=== PATIENT | male | born 1955 | race Caucasian/White ===

== ENCOUNTER 2016-12-22 02:12 | Emergency (ER) | payer BC, MEDICARE ==
[2016-12-22] MEDS ORDERED: DECADRON 10MG INJ. IM ONE (02:33)
[2016-12-22] MEDS ORDERED: DECADRON 10MG INJ. ONE (02:35)
--- NOTE | 2016-12-22 02:41 | ERPHSYRPT ---
- History of Present Illness Time Seen by Provider: 12/22/16 02:38 Source: patient Exam Limitations: no limitations Patient Subjective Stated Complaint: tripped over a child toy landing on elbows and knees. pain in neck low back and both legs. denies hitting head Triage Nursing Assessment: alert and oriented with c/o falling over a child toy landing on bilateraly elbows and knees. no redness or irritation to either elbowes or knees. + radial and pedal pulses bilaterally.. KAY. denies hitting head. Physician History: 61 y/o male comes to the ER with complaints of bilateral knee and elbow pain. Pt describes the pain as sharp, constant, 8/10 and not relieved by percocet. Pt denies any other injuries. Occurred: just prior to arrival Reason for Fall: slipped, tripped Injuries/Pain Location: no injury Loss of Consciousness: no loss of consciousness Quality: sharpness Severity of Pain-Max: severe Severity of Pain-Current: severe Modifying Factors: Improves With: nothing Allergies/Adverse Reactions: codeine Adverse Reaction (Intermediate, Verified 04/17/14 18:06) Vomiting Home Medications: Aspirin EC 325 mg [Ecotrin 325 MG] 325 mg PO DAILY 09/22/12 [History] Citalopram Hydrobromide [Celexa] 10 mg PO DAILY 09/22/12 [History] Clopidogrel Bisulfate 75 mg [PLAVIX 75 MG Tablet] 75 mg PO DAILY 09/22/12 [History] Nitroglycerin 0.4 mg (Ed) [Nitrostat 0.4 MG (ED)] 0.4 mg PO UD PRN [History] Rosuvastatin Calcium [Crestor] 10 mg PO DAILY 02/28/13 [History] Oxycodone HCl 5 mg Ir [Oxy-IR 5 MG] 10 mg PO BID 03/29/14 [History] Hx Tetanus, Diphtheria Vaccination/Date Given: No Hx Influenza Vaccination/Date Given: Yes Hx Pneumococcal Vaccination/Date Given: Yes (with in 5) Immunizations Up to Date: (unknown) - Review of Systems Constitutional: No Fever, No Chills Eyes: No Symptoms Ears, Nose, & Throat: No Symptoms Respiratory: No Cough, No Dyspnea Cardiac: No Chest Pain, No Edema, No Syncope Abdominal/Gastrointestinal: No Abdominal Pain, No Nausea, No Vomiting, No Diarrhea Genitourinary Symptoms: No Dysuria Musculoskeletal: No Back Pain, No Neck Pain Skin: No Rash Neurological: No Dizziness, No Focal Weakness, No Sensory Changes Psychological: No Symptoms Endocrine: No Symptoms All Other Systems: Reviewed and Negative - Past Medical History Pertinent Past Medical History: Yes Neurological History: Stroke ENT History: Other Cardiac History: Coronary Artery Disease, High Cholesterol, Peripheral Vascular Disease Respiratory History: COPD Endocrine Medical History: No Pertinent History Musculoskeletal History: Degenerative Disk Disease GI Medical History: GERD History: Other Psycho-Social History: Depression Other Medical History: 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 AORTA BYFEMEROL BYPASS - Social History Smoking Status: Current every day smoker How long have you smoked: 35 Exposure to second hand smoke: No Drug Use: none Patient Lives Alone: No - Nursing Vital Signs Nursing Vital Signs: Initial Vital Signs Temperature 97.8 F 12/22/16 02:14 Pulse Rate 86 12/22/16 02:14 Respiratory Rate 18 12/22/16 02:14 Blood Pressure 184/91 12/22/16 02:14 O2 Sat by Pulse Oximetry 97 12/22/16 02:14 Pain Scale Pain Intensity 8 - Yanci Coma Score Best Eye Response (Yanci): (4) open spontaneously Best Verbal Response (Yanci): (5) oriented Best Motor Response (Yanci): (6) obeys commands [place] Total: 15 - Physical Exam General Appearance: no apparent distress, alert Head Injury: no evidence of injury Eye Exam: PERRL/EOMI ENT Exam: airway nml Neck Exam: normal inspection, No tenderness Respiratory/Chest Exam: normal breath sounds, No chest tenderness, No respiratory distress Cardiovascular Exam: normal heart sounds, regular rate/rhythm Gastrointestinal Exam: soft, No tenderness, No distention, No guarding, No ecchymosis Back Exam: normal inspection, No vertebral tenderness Extremity Exam: normal inspection, normal range of motion, pelvis stable, No deformities Neurologic Exam: alert, oriented x 3, cooperative, sensation nml, No motor deficits Skin Exam: normal color, warm, dry SpO2: 97 Oxygen Delivery: Room Air - Course Nursing assessment & vital signs reviewed: Yes Ordered Tests: Medication Summary Discontinued Medications Generic Name Dose Route Start Last Admin Trade Name Juan Francisco PRN Reason Stop Dose Admin Dexamethasone Sodium Phosphate 10 mg 12/22/16 02:33 Decadron 10mg Inj. IM 12/22/16 02:34 STAT ONE - Progress Progress: unchanged Progress Note: 12/22/16 02:39 Pt is requesting a dose of steroids and will receive a dose of decadron 10mg IM X 1 dose. Pt will continue on his pain meds as needed. - Departure Time of Disposition: 02:40 Departure Disposition: Home Clinical Impression: Musculoskeletal arm pain Qualifiers: Laterality: unspecified laterality Qualified Code(s): M79.603 - Pain in arm, unspecified Condition: Stable Critical Care Time: No Referrals: OUSMANE LINK MD [Primary Care Provider] - Instructions: Prevent Falls Additional Instructions: Follow up with your primary care doctor for any additional recommendations for pain management.
[2016-12-22 02:57] VITALS: BP 172/70; PULSE 81; O2SAT 99
== END 2016-12-22 02:57 | disposition home or self-care (01) ==
LOC: ED 02:12 → SUPCPDRO 02:12 → ED 02:57
DX: M79.603 Pain in arm, unspecified (principal); W01.0XXA Fall on same level from slipping, tripping and stumbling without subsequent striking against object, initial encounter; M25.522 Pain in left elbow; M25.521 Pain in right elbow; M25.562 Pain in left knee; M25.561 Pain in right knee; M54.2 Cervicalgia; M54.5 Low back pain; Z79.891 Long term (current) use of opiate analgesic; Z79.899 Other long term (current) drug therapy
CPT/HCPCS: 96372; 99283; J1100

== ENCOUNTER 2019-02-20 20:29 | Emergency (ER) | payer MEDICARE, OTHER ==
--- NOTE | 2019-02-20 22:43 | ERPHSYRPT ---
- History of Present Illness Time Seen by Provider: 02/20/19 22:30 Source: patient Exam Limitations: no limitations Physician History: not feeling well for her 2-3 days. Has a cough, dizziness, chills, body aches, malaise. is also sick with a similar symptoms. Patient has a suprapubic catheter. Timing/Duration: day(s) (3) Severity: moderate Modifying Factors: Improves With: nothing Associated Symptoms: nausea, cough, chills, fever, loss of appetite, malaise, weakness, No abdominal pain, No shortness of breath, No heartburn, No diaphoresis Allergies/Adverse Reactions: codeine Adverse Reaction (Intermediate, Verified 02/20/19 23:09) Vomiting Home Medications: Aspirin EC 325 mg [Ecotrin 325 MG] 325 mg PO DAILY 09/22/12 [History] Clopidogrel Bisulfate 75 mg [PLAVIX 75 MG Tablet] 75 mg PO DAILY 09/22/12 [History] Nitroglycerin 0.4 mg (Ed) [Nitrostat 0.4 MG (ED)] 0.4 mg PO UD PRN [History] Rosuvastatin Calcium [Crestor] 10 mg PO DAILY 02/28/13 [History] Oxycodone HCl/Acetaminophen [Percocet 7.5-325 mg Tablet] 1 each PO TID 06/26/17 [History] Cilostazol 100 mg [Pletal 100 MG] 50 mg PO BID 07/10/17 [History] Docusate Sodium [Stool Softener] 100 mg PO DAILY 07/10/17 [History] Gabapentin 300 mg PO TID 07/10/17 [History] Hx Tetanus, Diphtheria Vaccination/Date Given: No Hx Influenza Vaccination/Date Given: Yes Hx Pneumococcal Vaccination/Date Given: Yes (with in 5) - Review of Systems Constitutional: Fever, Chills Eyes: No Symptoms Ears, Nose, & Throat: No Symptoms, Throat Pain Respiratory: Cough, No Dyspnea Cardiac: No Chest Pain, No Edema, No Syncope Abdominal/Gastrointestinal: Nausea, No Abdominal Pain, No Vomiting, No Diarrhea Genitourinary Symptoms: No Dysuria Musculoskeletal: No Back Pain, No Neck Pain Skin: No Rash Neurological: No Dizziness, No Focal Weakness, No Sensory Changes Psychological: No Symptoms Endocrine: No Symptoms All Other Systems: Reviewed and Negative - Past Medical History Pertinent Past Medical History: Yes Neurological History: Stroke ENT History: Other Cardiac History: Coronary Artery Disease, High Cholesterol, Peripheral Vascular Disease Respiratory History: COPD Endocrine Medical History: No Pertinent History Musculoskeletal History: Degenerative Disk Disease GI Medical History: GERD History: Other Psycho-Social History: Depression Other Medical History: 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 AORTA BYFEMEROL BYPASS - Social History Smoking Status: Current every day smoker How long have you smoked: 35 Exposure to second hand smoke: No Drug Use: none Patient Lives Alone: No - Nursing Vital Signs Nursing Vital Signs: Initial Vital Signs Temperature 99.3 F 02/20/19 22:57 Pulse Rate 82 02/20/19 22:57 Respiratory Rate 18 02/20/19 22:57 Blood Pressure 108/65 02/20/19 22:57 O2 Sat by Pulse Oximetry 95 02/20/19 22:57 Pain Scale Pain Intensity 4 - Physical Exam General Appearance: no apparent distress, alert Eye Exam: PERRL/EOMI, eyes nml inspection Ears, Nose, Throat Exam: pharyngeal erythema Neck Exam: normal inspection, non-tender, supple, full range of motion Respiratory Exam: normal breath sounds, lungs clear, No respiratory distress Cardiovascular Exam: regular rate/rhythm, normal heart sounds, normal peripheral pulses Gastrointestinal/Abdomen Exam: soft, normal bowel sounds, No tenderness, No mass Back Exam: normal inspection, normal range of motion, No CVA tenderness, No vertebral tenderness Extremity Exam: normal inspection, normal range of motion, pelvis stable Neurologic Exam: alert, oriented x 3, cooperative, normal mood/affect, nml cerebellar function, nml station & gait, sensation nml, No motor deficits Skin Exam: normal color, warm, dry, No rash Lymphatic Exam: No adenopathy - Course Nursing assessment & vital signs reviewed: Yes Ordered Tests: Active Orders 24 hr Category Date Time Status CBC W DIFF Stat Lab 02/20/19 23:27 Completed CMP Stat Lab 02/20/19 23:27 Completed CULTURE,URINE Stat Lab 02/20/19 23:27 Received UA W/RFX UR CULTURE Stat Lab 02/20/19 23:27 Completed Medication Summary Discontinued Medications Generic Name Dose Route Start Last Admin Trade Name Juan Francisco PRN Reason Stop Dose Admin Ceftriaxone Sodium 1,000 mg 02/20/19 22:58 02/20/19 23:14 Rocephin 1000 Mg Inj IM 02/20/19 22:59 1,000 mg STAT ONE Administration Ceftriaxone Sodium Confirm 02/20/19 23:12 Rocephin 1000 Mg Inj Administered 02/20/19 23:13 Dose 1,000 mg .ROUTE .STK-MED ONE Lab/Rad Data: Laboratory Result Diagrams 02/20/19 23:27 02/20/19 23:27 Laboratory Results 02/20/19 02/20/19 02/20/19 Range/Units 23:27 23:27 23:27 WBC 8.2 (4.0-10.5) K/mm3 RBC 4.73 (4.1-5.6) M/mm3 Hgb 12.4 L (12.5-18.0) gm/dl Hct 39.9 L (42-50) % MCV 84.4 (78-100) fl MCH 26.2 (26-32) pg MCHC 31.1 L (32-36) g/dl RDW 15.6 H (11.5-14.0) % Plt Count 232 (150-450) K/mm3 MPV 10.7 H (6-9.5) fl Gran % 74.2 H (36.0-66.0) % Eos # (Auto) 0.01 (0-0.5) Absolute Lymphs (auto) 1.39 (1.0-4.6) Absolute Monos (auto) 0.71 (0.0-1.3) Lymphocytes % 16.9 L (24.0-44.0) % Monocytes % 8.6 (0.0-12.0) % Eosinophils % 0.1 (0.00-5.0) % Basophils % 0.2 (0.0-0.4) % Absolute Granulocytes 6.10 (1.4-6.9) Basophils # 0.02 (0-0.4) Sodium 139 (137-145) mmol/L Potassium 3.7 (3.5-5.1) mmol/L Chloride 102 (98-107) mmol/L Carbon Dioxide 27 (22-30) mmol/L Anion Gap 13.1 (5-15) MEQ/L BUN 14 (9-20) mg/dL Creatinine 0.87 (0.66-1.25) mg/dL Estimated GFR > 60.0 ML/MIN Glucose 147 H (74-106) mg/dL Calcium 9.3 (8.4-10.2) mg/dL Total Bilirubin 0.60 (0.2-1.3) mg/dL AST 47 (17-59) U/L ALT 19 (0-50) U/L Alkaline Phosphatase 97 (38-126) U/L Serum Total Protein 8.6 H (6.3-8.2) g/dL Albumin 4.2 (3.5-5.0) g/dL Urine Color YELLOW (YELLOW) Urine Appearance SLIGHTLY CLOUDY (CLEAR) Urine pH 7.0 (5-6) Ur Specific [place] 1.013 (1.005-1.025) Urine Protein 30 (Negative) Urine Ketones TRACE (NEGATIVE) Urine Blood SMALL (0-5) Nate/ul Urine Nitrite NEGATIVE (NEGATIVE) Urine Bilirubin NEGATIVE (NEGATIVE) Urine Urobilinogen NEGATIVE (0-1) mg/dL Ur Leukocyte Esterase SMALL (NEGATIVE) Urine WBC (Auto) 11-15 (0-5) /HPF Urine RBC (Auto) 3-5 (0-2) /HPF U Hyaline Cast (Auto) 0-2 (0-2) /LPF U Epithel Cells (Auto) NONE (FEW) /HPF Urine Bacteria (Auto) FEW (NEGATIVE) /HPF Urine Mucus (Auto) SLIGHT (NEGATIVE) /HPF Urine Culture Reflexed ORDERED SEPARATELY (NO) Urine Glucose NEGATIVE (NEGATIVE) mg/dL - Progress Progress: improved Progress Note: 12/2patient feels better. No life or limb threatening condition. No respiratory distress. Counseled pt/family regarding: lab results, diagnosis, need for follow-up - Departure Departure Disposition: Home Clinical Impression: Influenza A Acute bronchitis Qualifiers: Bronchitis organism: unspecified organism Qualified Code(s): J20.9 - Acute bronchitis, unspecified Upper respiratory infection Qualifiers: URI type: unspecified URI Qualified Code(s): J06.9 - Acute upper respiratory infection, unspecified Condition: Stable Critical Care Time: No Referrals: MARIA DE JESUS LEMOS MD [Primary Care Provider] - 02/22/19 Instructions: Cough, Adult (DC), Flu, Adult (DC), Acute Bronchitis Prescriptions: Azithromycin 250 mg [Zithromax 250 MG TABLET] 250 mg PO ZPACK #6 tablet Oseltamivir 75 mg [Tamiflu 75MG Capsule] 75 mg PO BID 5 Days #10 cap
[2019-02-20] MEDS ORDERED: Rocephin 1000 MG INJ IM ONE (22:58)
[2019-02-20 23:09] VITALS: O2SAT 95
[2019-02-20] MEDS ORDERED: Rocephin 1000 MG INJ ONE (23:12)
[2019-02-20] MEDS ORDERED: XYLOCAINE 1% HCL 20 ML MDV IJ ONE (23:12)
[2019-02-20 23:29] LABS: BASOPHIL % 0.2 % (0.0-0.4); Basophil (Absolute #) 0.02 (0-0.4); Eosinophil % 0.1 % (0.00-5.0); Eosinophil (Absolute #) 0.01 (0-0.5); Hematocrit 39.9 % (42-50); Hemoglobin 12.4 gm/dl (12.5-18.0); Lymphocyte (Absolute #) 1.39 (1.0-4.6); Lymphocytes % 16.9 % (24.0-44.0); Mean Cell Volume 84.4 fl (78-100); Mean Corpuscular Hemoglobin 26.2 pg (26-32); Mean Corpuscular Hgb Concent. 31.1 g/dl (32-36); Mean Platelet Volume 10.7 fl (6-9.5); Monocyte (Absolute #) 0.71 (0.0-1.3); Monocytes % 8.6 % (0.0-12.0); Neutrophil % 74.2 % (36.0-66.0); Platelet Count 232 K/mm3 (150-450); Red Blood Count 4.73 M/mm3 (4.1-5.6); Red Cell Distribution Width 15.6 % (11.5-14.0); White Blood Count 8.2 K/mm3 (4.0-10.5)
[2019-02-20 23:45] LABS: ALBUMIN 4.2 g/dL (3.5-5.0); ALKALINE PHOSPHATASE 97 U/L (38-126); ANION GAP 13.1 MEQ/L (5-15); BLOOD UREA NITROGEN 14 mg/dL (9-20); CHLORIDE 102 mmol/L (98-107); Calcium 9.3 mg/dL (8.4-10.2); Carbon Dioxide 27 mmol/L (22-30); Creatinine 1 0.87 mg/dL (0.66-1.25); Glucose 147 mg/dL (74-106); Potassium 3.7 mmol/L (3.5-5.1); SGOT/AST 47 U/L (17-59); SGPT/ALT 19 U/L (0-50); SODIUM 139 mmol/L (137-145); Total Protein 8.6 g/dL (6.3-8.2)
[2019-02-20 23:52] LABS: Appearance SLIGHTLY CLOUDY (CLEAR); Bacteria FEW /HPF (NEGATIVE); Bilirubin NEGATIVE (NEGATIVE); Blood SMALL Ery/ul (0-5); Glucose NEGATIVE (NEGATIVE); Hyaline Casts 0-2 /LPF (0-2); Ketones TRACE (NEGATIVE); Leukocyte Esterase SMALL (NEGATIVE); Mucus SLIGHT /HPF (NEGATIVE); Nitrite NEGATIVE (NEGATIVE); Protein,Urine Dip 30 (Negative); Specific Gravity 1.013 (1.005-1.025); Urobilinogen NEGATIVE mg/dL (0-1)
[2019-02-21 00:40] VITALS: BP 118/65; PULSE 81
[2019-02-21] MEDS ORDERED: Tamiflu 75MG Capsule PO ONE ×2 (00:46→00:52)
[2019-02-21 00:49] LABS: Group A Strep NEGATIVE (NEGATIVE); INFLUENZA A POSITIVE (NEGATIVE); INFLUENZA B NEGATIVE (NEGATIVE); RESPIRATORY SYNCTIAL VIRUS NEGATIVE (Negative)
== END 2019-02-21 01:09 | disposition home or self-care (01) ==
LOC: ED 20:29 → UNDOADMOB 02-21 01:22 → MED SURG 02-21 01:22
DX: J10.1 Influenza due to other identified influenza virus with other respiratory manifestations (principal); J20.9 Acute bronchitis, unspecified; J06.9 Acute upper respiratory infection, unspecified
CPT/HCPCS: 36415; 80053; 81001; 85025; 87077; 87086; 87186; 87631; 87651; 96372; 99284; J0696; A9270-GY

== ENCOUNTER 2019-09-11 10:08 | Day surgery (SDC) | payer MEDICARE, OTHER ==
[2019-09-11] MEDS ORDERED: Xylocaine 1% Vial 30 ML PF IJ ONE (10:09)
[2019-09-11] MEDS ORDERED: Sensorcaine 0.25% 10 ML IJ ONE (10:09)
[2019-09-11] MEDS ORDERED: Ketamine HCl 50 MG/ML ONE (11:27)
[2019-09-11] MEDS ORDERED: DIPRIVAN 200 MG/20 ML IV ONE (11:27)
--- NOTE | 2019-09-11 12:14 | XRAY ---
Indication: Right lumbar sympathetic nerve block. Intraoperative fluoroscopy was provided for 23 seconds. 2 digital spot images submitted for interpretation demonstrates right posterior needle tip projecting immediately anterior to a mid lumbar segment, probably L3. Small amount of contrast injected for needle tip placement. Correlate with intraoperative findings/report.
--- NOTE | 2019-09-11 13:16 | XRAY ---
23 seconds fluoroscopy time in surgery for right lumbar sympathetic nerve block.
[2019-09-11] MEDS ORDERED: Lactated Ringers 1,000 ML IV ONE (15:49)
== END 2019-09-11 11:56 | disposition home or self-care (01) ==
LOC: SDC-PAIN 10:08
PROVIDERS: ATTEND Psychiatry & Neurology Pain Medicine
DX: G90.521 Complex regional pain syndrome I of right lower limb (principal); I10 Essential (primary) hypertension; J44.9 Chronic obstructive pulmonary disease, unspecified; E11.9 Type 2 diabetes mellitus without complications; Z86.73 Personal history of transient ischemic attack (TIA), and cerebral infarction without residual deficits; Z79.899 Other long term (current) drug therapy
CPT/HCPCS: 64520; 72100; 77002; 82962; J1642; J2001; J2704; Q9966

== ENCOUNTER 2020-11-04 15:20 | Emergency (ER) | payer MEDICARE, OTHER ==
[2020-11-04 17:39] VITALS: BP 123/71; PULSE 69; O2SAT 98
== END 2020-11-04 18:00 | disposition left against medical advice (07) ==
LOC: ED 15:20
DX: Z46.6 Encounter for fitting and adjustment of urinary device (principal)
CPT/HCPCS: 99283; G0463

== ENCOUNTER 2021-01-09 00:55 | Inpatient (IN) | payer MEDICARE, OTHER ==
[2021-01-09] MEDS ORDERED: TORAdol 30 mg Injection IV ONE (01:47)
[2021-01-09] MEDS ORDERED: Zofran 4 MG/2 ML VIAL IV ONE ×2 (01:47→02:52)
[2021-01-09] MEDS ORDERED: Sodium Chloride 0.9% 500 ML 500 ML IV ONE ×2 (01:48→01:52)
[2021-01-09] MEDS ORDERED: Zofran 4 MG/2 ML VIAL ONE ×2 (01:51→02:53)
[2021-01-09] MEDS ORDERED: TORAdol 30 mg Injection ONE (01:51)
[2021-01-09 01:52] LABS: Appearance CLOUDY (CLEAR); Bacteria MODERATE /HPF (NEGATIVE); Bilirubin NEGATIVE (NEGATIVE); Blood LARGE Ery/ul (0-5); Epithelial Cells RARE /HPF (FEW); Glucose NEGATIVE (NEGATIVE); Ketones TRACE (NEGATIVE); Leukocyte Esterase LARGE (NEGATIVE); Mucus MANY /HPF (NEGATIVE); Nitrite POSITIVE (NEGATIVE); Non-Squamous Epithelial Cells RARE /HPF (FEW); Protein,Urine Dip 30 (Negative); Specific Gravity 1.013 (1.005-1.025); Urobilinogen NEGATIVE mg/dL (0-1); WBC >100 /HPF (0-5)
[2021-01-09 01:53] LABS: RBC >101 /HPF (0-2)
[2021-01-09 01:53] LABS: Absolute Neutrophil Ct (ANC) 8.05 (1.4-6.9); BASOPHIL % 0.1 % (0.0-0.4); Basophil (Absolute #) 0.01 (0-0.4); Eosinophil % 1.9 % (0.00-5.0); Eosinophil (Absolute #) 0.23 (0-0.5); Hematocrit 46.2 % (42-50); Hemoglobin 15.1 gm/dl (12.5-18.0); Lymphocyte (Absolute #) 2.33 (1.0-4.6); Lymphocytes % 19.6 % (24.0-44.0); Mean Cell Volume 86.5 fl (78-100); Mean Corpuscular Hemoglobin 28.3 pg (26-32); Mean Corpuscular Hgb Concent. 32.7 g/dl (32-36); Mean Platelet Volume 11.1 fl (7.5-11.0); Monocyte (Absolute #) 1.28 (0.0-1.3); Monocytes % 10.8 % (0.0-12.0); Neutrophil % 67.6 % (36.0-66.0); Platelet Count 196 K/mm3 (150-450); Red Blood Count 5.34 M/mm3 (4.1-5.6); Red Cell Distribution Width 14.3 % (11.5-14.0); White Blood Count 11.9 K/mm3 (4.0-10.5)
--- NOTE | 2021-01-09 02:02 | ERPHSYRPT ---
- History of Present Illness Time Seen by Provider: 01/09/21 01:35 Historian: patient Exam Limitations: no limitations Patient Subjective Stated Complaint: Patient states " my stomach started hurting and it hasn't let up and my sides and back started early in morn ing and I think I might have a kidney infection." Triage Nursing Assessment: Patient arrived to ED and ambulated to room with slow and steady gait. Patient A/O times 4. Patient able to follow instructions without difficulty. Patient denies any SOB or chest pain. Respiratory regular and easy and non-labored. Cap refill < 3 seconds. Symmetrical rise and fall of chest. No S/S of acute respiratory distress noted. ABD round and non-distended. + BS times 4 quads. Patient with tenderness upon palpitation above umbilicus and below. Patient with radiating pain into bilateral flanks and lower back. Patient able to void with cloudy urine with mucous present. Patient denies any pain or burning upon urination. Patient states he has HX of UTI'S. Patient states he takes oral ATB daily as profalactic. Patient with HX of having a supra pubic cath but does not have anymore. Patient stated it fell out. Patient stated it was placed couple of year ago and fell out couple of years ago. Patient sattes it was placed because he was getting infections so badly and all the time. Patient with nausea and he stated he had vomiting on Monday but none siince then. Patient states he had loose stools on Monday as well but hasn't had any since. Patient noted with no dependent edema. + Radial and pedal pulses noted bilateral. Patient denies any trauma or injury to ABD. Patient states he has had a drastic 30# weight loss in short amount of time. Patient states he had MRI done Monday at [facility] to rule out CA. Physician History: 65 years old male with multiple medical problems including hypertension, coronary artery disease status post stenting, peripheral vascular disease, chronic UTIs on Keflex for prophylaxis presented in the ER with chief complaint of bilateral flank and periumbilical area pain for the last 3 days, dull aching mild to moderate with associated nausea vomiting. Denies any constipation or diarrhea. Patient is concerned about getting pyelonephritis as he has similar symptoms in the past with pyelonephritis/sepsis. No fever or chills reported though. Timing/Duration: day(s) (3), constant, gradual onset, worse Activities at Onset: rest Quality: aching, dullness Abdominal Pain Onset Location: periumbilical, suprapubic, flank Pain Radiation: no radiation Severity of Pain-Max: moderate Severity of Pain-Current: moderate Modifying Factors: Improves With: nothing Associated Symptoms: nausea Previous symptoms: same symptoms as today Allergies/Adverse Reactions: codeine Adverse Reaction (Intermediate, Verified 01/09/21 01:09) Vomiting Home Medications: Clopidogrel Bisulfate 75 mg [PLAVIX 75 MG Tablet] 75 mg PO UD 09/22/12 [History] Nitroglycerin 0.4 mg (Ed) [Nitrostat 0.4 MG (ED)] 0.4 mg PO UD PRN 02/28/13 [History] Rosuvastatin Calcium [Crestor] 10 mg PO DAILY 02/28/13 [History] Cephalexin Mh 500 mg [Keflex 500 mg] 500 mg PO DAILY 01/09/21 [History] Hx Tetanus, Diphtheria Vaccination/Date Given: Yes Hx Influenza Vaccination/Date Given: No Hx Pneumococcal Vaccination/Date Given: No Immunizations Up to Date: Yes Travel Risk - International Travel Have you traveled outside of the country in past 3 weeks: No (N) If Yes, where;: N - Coronavirus Screening Close contact with a COVID-19 positive Pt in past 14-21 Days: No - Vaccine Status Have you recieved a Covid-19 vaccination: Yes Ager Tender: Moderna - Vaccination Dates Date of 2cond Vaccination (if applicable): 05/04/20 - Review of Systems Constitutional: No Symptoms Eyes: No Symptoms Ears, Nose, & Throat: No Symptoms Respiratory: No Symptoms Cardiac: No Symptoms Abdominal/Gastrointestinal: Abdominal Pain, Nausea Genitourinary Symptoms: No Symptoms Musculoskeletal: Arthralgias Skin: No Symptoms Neurological: No Symptoms Psychological: No Symptoms Endocrine: No Symptoms Hematologic/Lymphatic: No Symptoms Immunological/Allergic: No Symptoms - Past Medical History Pertinent Past Medical History: Yes Neurological History: Stroke ENT History: Other Cardiac History: Coronary Artery Disease, High Cholesterol, Peripheral Vascular Disease Respiratory History: COPD Endocrine Medical History: No Pertinent History Musculoskeletal History: Degenerative Disk Disease GI Medical History: GERD History: Other Psycho-Social History: Depression Male Reproductive Disorders: No Pertinent History Other Medical History: 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 AORTA BYFEMEROL BYPASS - Social History Smoking Status: Current every day smoker How long have you smoked: 50+ years Exposure to second hand smoke: Yes Drug Use: none Patient Lives Alone: No - Nursing Vital Signs Nursing Vital Signs: Initial Vital Signs Temperature 97.6 F 01/09/21 00:55 Pulse Rate 87 01/09/21 00:55 Respiratory Rate 22 01/09/21 00:55 Blood Pressure 191/92 01/09/21 00:55 O2 Sat by Pulse Oximetry 96 01/09/21 00:55 Pain Scale Pain Intensity 3 - Physical Exam General Appearance: no apparent distress, alert Eye Exam: PERRL/EOMI Ears, Nose, Throat Exam: normal ENT inspection, pharynx normal Neck Exam: normal inspection, supple, full range of motion Respiratory Exam: normal breath sounds, lungs clear Cardiovascular Exam: regular rate/rhythm, normal heart sounds Gastrointestinal/Abdomen Exam: soft, normal bowel sounds, tenderness (Mild generalized), No guarding Back Exam: normal inspection Extremity Exam: normal inspection, normal range of motion Neurologic Exam: alert, oriented x 3, cooperative Skin Exam: normal color SpO2 Interpretation: normal SpO2: 96 O2 Delivery: Room Air Ordered Tests: Active Orders 24 hr Category Date Time Status IV Insertion STAT Care 01/09/21 01:47 Active ABDOMEN AND PELVIS W CONTRAST [CT] Stat Exams 01/09/21 01:47 Taken CHEST 1 VIEW (PORTABLE) Stat Exams 01/09/21 02:33 Taken BLOOD CULTURE Stat Lab 01/09/21 01:22 Received BLOOD CULTURE Stat Lab 01/09/21 02:34 Received CBC W DIFF Stat Lab 01/09/21 01:49 Completed CMP Stat Lab 01/09/21 01:49 Completed CULTURE,URINE Stat Lab 01/09/21 01:38 Received LIPASE Stat Lab 01/09/21 01:49 Completed UA W/RFX UR CULTURE Stat Lab 01/09/21 01:38 Completed Urine Triage Profile Stat Lab 01/09/21 01:43 Completed Medication Summary Generic Name Dose Route Start Last Admin Trade Name Juan Francisco PRN Reason Stop Dose Admin Sodium Chloride 1,000 mls @ 125 mls/hr 01/09/21 03:15 01/09/21 03:58 Sodium Chloride 0.9% 1000 Ml IV 02/08/21 03:14 125 mls/hr .Q8H JOHN Administration Discontinued Medications Generic Name Dose Route Start Last Admin Trade Name Juan Francisco PRN Reason Stop Dose Admin Fentanyl Citrate 50 mcg 01/09/21 04:16 01/09/21 04:29 Fentanyl Citrate 100 Mcg/2 Ml* Vial IV 01/09/21 04:17 50 mcg STAT ONE Administration Fentanyl Citrate Confirm 01/09/21 04:21 Fentanyl Citrate 100 Mcg/2 Ml* Vial Administered 01/09/21 04:22 Dose 100 mcg .ROUTE .STK-MED ONE Sodium Chloride 500 mls @ 500 mls/hr 01/09/21 01:48 01/09/21 05:19 Sodium Chloride 0.9% 500 Ml IV 01/09/21 02:47 Infused .Q1H ONE Infusion Sodium Chloride Confirm 01/09/21 01:52 Sodium Chloride 0.9% 500 Ml Administered 01/09/21 01:53 Dose 500 mls @ ud IV .STK-MED ONE Ceftriaxone Sodium/Dextrose 2 g in 50 mls @ 100 mls/hr 01/09/21 02:04 01/09/21 05:20 Rocephin 2 Gm-D5w 50ml Bag IV 01/09/21 02:33 Infused STAT STA Infusion Ceftriaxone Sodium/Dextrose Confirm 01/09/21 02:05 Rocephin 2 Gm-D5w 50ml Bag Administered 01/09/21 02:06 Dose 2 g in 50 mls @ ud IV .STK-MED ONE Ketorolac Tromethamine 30 mg 01/09/21 01:47 01/09/21 01:58 Ketorolac Tromethamine 30 Mg/Ml Inj IV 01/09/21 01:48 30 mg STAT ONE Administration Ketorolac Tromethamine Confirm 01/09/21 01:51 Ketorolac Tromethamine 30 Mg/Ml Inj Administered 01/09/21 01:52 Dose 30 mg .ROUTE .STK-MED ONE Ondansetron HCl 4 mg 01/09/21 01:47 01/09/21 01:58 Ondansetron Hcl 4 Mg/2 Ml Vial IV 01/09/21 01:48 4 mg STAT ONE Administration Ondansetron HCl Confirm 01/09/21 01:51 Ondansetron Hcl 4 Mg/2 Ml Vial Administered 01/09/21 01:52 Dose 4 mg .ROUTE .STK-MED ONE Ondansetron HCl 4 mg 01/09/21 02:52 01/09/21 02:54 Ondansetron Hcl 4 Mg/2 Ml Vial IV 01/09/21 02:53 4 mg STAT ONE Administration Ondansetron HCl Confirm 01/09/21 02:53 Ondansetron Hcl 4 Mg/2 Ml Vial Administered 01/09/21 02:54 Dose 4 mg .ROUTE .STK-MED ONE Lab/Rad Data: Laboratory Result Diagrams 01/09/21 01:49 01/09/21 01:49 Laboratory Results 01/09/21 01/09/21 01/09/21 Range/Units 01:49 01:49 01:43 WBC 11.9 H (4.0-10.5) K/mm3 RBC 5.34 (4.1-5.6) M/mm3 Hgb 15.1 (12.5-18.0) gm/dl Hct 46.2 (42-50) % MCV 86.5 (78-100) fl MCH 28.3 (26-32) pg MCHC 32.7 (32-36) g/dl RDW 14.3 H (11.5-14.0) % Plt Count 196 (150-450) K/mm3 MPV 11.1 H (7.5-11.0) fl Gran % 67.6 H (36.0-66.0) % Eos # (Auto) 0.23 (0-0.5) Absolute Lymphs (auto) 2.33 (1.0-4.6) Absolute Monos (auto) 1.28 (0.0-1.3) Lymphocytes % 19.6 L (24.0-44.0) % Monocytes % 10.8 (0.0-12.0) % Eosinophils % 1.9 (0.00-5.0) % Basophils % 0.1 (0.0-0.4) % Absolute Granulocytes 8.05 H (1.4-6.9) Basophils # 0.01 (0-0.4) Sodium 136 L (137-145) mmol/L Potassium 4.0 (3.5-5.1) mmol/L Chloride 102 (98-107) mmol/L Carbon Dioxide 25 (22-30) mmol/L Anion Gap 12.5 (5-15) MEQ/L BUN 18 (9-20) mg/dL Creatinine 0.61 L (0.66-1.25) mg/dL Estimated GFR > 60.0 ML/MIN Glucose 146 H (74-106) mg/dL Calcium 9.2 (8.4-10.2) mg/dL Total Bilirubin 0.60 (0.2-1.3) mg/dL AST 22 (17-59) U/L ALT 17 (0-50) U/L Alkaline Phosphatase 132 H (38-126) U/L Serum Total Protein 7.4 (6.3-8.2) g/dL Albumin 4.2 (3.5-5.0) g/dL Lipase 7378 H (23-300) U/L Urine Color (YELLOW) Urine Appearance (CLEAR) Urine pH (5-6) Ur Specific Finley (1.005-1.025) Urine Protein (Negative) Urine Ketones (NEGATIVE) Urine Blood (0-5) Nate/ul Urine Nitrite (NEGATIVE) Urine Bilirubin (NEGATIVE) Urine Urobilinogen (0-1) mg/dL Ur Leukocyte Esterase (NEGATIVE) Urine WBC (Auto) (0-5) /HPF Urine RBC (Auto) (0-2) /HPF U Epithel Cells (Auto) (FEW) /HPF Urine Bacteria (Auto) (NEGATIVE) /HPF U Non-Squamous Epi Cells (FEW) /HPF Urine Mucus (Auto) (NEGATIVE) /HPF Urine Culture Reflexed (NO) Urine Glucose (NEGATIVE) mg/dL Urine Opiates Level NEGATIVE (NEGATIVE) Ur Methadone NEGATIVE (NEGATIVE) Urine Barbiturates NEGATIVE (NEGATIVE) Ur Phencyclidine (PCP) NEGATIVE (NEGATIVE) Urine Amphetamine NEGATIVE (NEGATIVE) U Benzodiazepine Level NEGATIVE (NEGATIVE) Urine Cocaine NEGATIVE (NEGATIVE) Urine Marijuana (THC) NEGATIVE (NEGATIVE) 01/09/21 Range/Units 01:38 WBC (4.0-10.5) K/mm3 RBC (4.1-5.6) M/mm3 Hgb (12.5-18.0) gm/dl Hct (42-50) % MCV (78-100) fl MCH (26-32) pg MCHC (32-36) g/dl RDW (11.5-14.0) % Plt Count (150-450) K/mm3 MPV (7.5-11.0) fl Gran % (36.0-66.0) % Eos # (Auto) (0-0.5) Absolute Lymphs (auto) (1.0-4.6) Absolute Monos (auto) (0.0-1.3) Lymphocytes % (24.0-44.0) % Monocytes % (0.0-12.0) % Eosinophils % (0.00-5.0) % Basophils % (0.0-0.4) % Absolute Granulocytes (1.4-6.9) Basophils # (0-0.4) Sodium (137-145) mmol/L Potassium (3.5-5.1) mmol/L Chloride (98-107) mmol/L Carbon Dioxide (22-30) mmol/L Anion Gap (5-15) MEQ/L BUN (9-20) mg/dL Creatinine (0.66-1.25) mg/dL Estimated GFR ML/MIN Glucose (74-106) mg/dL Calcium (8.4-10.2) mg/dL Total Bilirubin (0.2-1.3) mg/dL AST (17-59) U/L ALT (0-50) U/L Alkaline Phosphatase (38-126) U/L Serum Total Protein (6.3-8.2) g/dL Albumin (3.5-5.0) g/dL Lipase (23-300) U/L Urine Color YELLOW (YELLOW) Urine Appearance CLOUDY (CLEAR) Urine pH 6.0 (5-6) Ur Specific Finley 1.013 (1.005-1.025) Urine Protein 30 (Negative) Urine Ketones TRACE (NEGATIVE) Urine Blood LARGE (0-5) Nate/ul Urine Nitrite POSITIVE (NEGATIVE) Urine Bilirubin NEGATIVE (NEGATIVE) Urine Urobilinogen NEGATIVE (0-1) mg/dL Ur Leukocyte Esterase LARGE (NEGATIVE) Urine WBC (Auto) >100 (0-5) /HPF Urine RBC (Auto) >101 (0-2) /HPF U Epithel Cells (Auto) RARE (FEW) /HPF Urine Bacteria (Auto) MODERATE (NEGATIVE) /HPF U Non-Squamous Epi Cells RARE (FEW) /HPF Urine Mucus (Auto) MANY (NEGATIVE) /HPF Urine Culture Reflexed YES (NO) Urine Glucose NEGATIVE (NEGATIVE) mg/dL Urine Opiates Level (NEGATIVE) Ur Methadone (NEGATIVE) Urine Barbiturates (NEGATIVE) Ur Phencyclidine (PCP) (NEGATIVE) Urine Amphetamine (NEGATIVE) U Benzodiazepine Level (NEGATIVE) Urine Cocaine (NEGATIVE) Urine Marijuana (THC) (NEGATIVE) - Progress Progress: improved, pain not gone completely, re-examined Progress Note: 01/09/21 06:27 65 years old is evaluated in the ER with abdominal pain and nausea. Patient is given IV fluids along with symptomatic treatment for pain and nausea, on reevaluation feeling better. Work-up showed white count of 11, grossly unremarkable chemistries and lipase is in 7000 since. Does have UTI, given a dose of Rocephin. I have obtained CT abdomen pelvis with contrast which showed pancreatic head calcification with some pancreatic duct dilatation but no pancreatic necrosis etc. CT also showed cecum and ascending colon dilatation with gradual transition suggesting ileus. No intestinal obstruction. We will keep patient n.p.o. which will help conservatively managing pancreatitis and a lso ileus. Discussed with Dr. Farfan, reviewed history, work-up and patient is accepted for admission. Discussed with : Norberto Will see patient in: hospital (observation) Counseled pt/family regarding: lab results, diagnosis, rad results - Departure Departure Disposition: Observation Clinical Impression: Acute pancreatitis, Acute UTI, Ileus Condition: Stable Critical Care Time: No Referrals: MARIA DE JESUS LEMOS MD [Primary Care Provider] - Follow up/PCP as directed
[2021-01-09] MEDS ORDERED: ROCEPHIN 2 Gm-D5w 50ML BAG** 2 G/50 ML IVPB IV STA (02:04)
[2021-01-09 02:05] LABS: Amphetamine,Urine NEGATIVE (NEGATIVE); Barbiturate,Urine NEGATIVE (NEGATIVE); Benzodiazepine,Urine NEGATIVE (NEGATIVE); Cocaine,Urine NEGATIVE (NEGATIVE); Methadone,Urine NEGATIVE (NEGATIVE); Opiate,Urine NEGATIVE (NEGATIVE); PCP,Urine NEGATIVE (NEGATIVE); THC,Urine NEGATIVE (NEGATIVE)
[2021-01-09] MEDS ORDERED: ROCEPHIN 2 Gm-D5w 50ML BAG** 2 G/50 ML IVPB IV ONE (02:05)
[2021-01-09 02:10] LABS: ALBUMIN 4.2 g/dL (3.5-5.0); ALKALINE PHOSPHATASE 132 U/L (38-126); ANION GAP 12.5 MEQ/L (5-15); BLOOD UREA NITROGEN 18 mg/dL (9-20); CHLORIDE 102 mmol/L (98-107); Calcium 9.2 mg/dL (8.4-10.2); Carbon Dioxide 25 mmol/L (22-30); Creatinine 1 0.61 mg/dL (0.66-1.25); EST GLOMERULAR FILTRATION RATE > 60.0 ML/MIN; Glucose 146 mg/dL (74-106); SGOT/AST 22 U/L (17-59); SGPT/ALT 17 U/L (0-50); SODIUM 136 mmol/L (137-145); Total Protein 7.4 g/dL (6.3-8.2)
[2021-01-09 02:29] LABS: LIPASE 7378 U/L (23-300)
[2021-01-09] MEDS ORDERED: Sodium Chloride 0.9% 1000 ML 1,000 ML IV SCH (03:15)
[2021-01-09] MEDS ORDERED: SUBLIMAZE 100 MCG/2 ML IV ONE (04:16)
[2021-01-09] MEDS ORDERED: SUBLIMAZE 100 MCG/2 ML ONE (04:21)
[2021-01-09] MEDS ORDERED: Hydromorphone 1 mg/ml Injection IV PRN (09:18)
--- NOTE | 2021-01-09 09:45 | XRAY ---
Indication: Abdomen and back pain. Nausea. Difficulty urinating. Multiple contiguous axial images obtained through the abdomen and pelvis using 80 cc Isovue 370 contrast. Comparison: April 17, 2014. Lung bases again demonstrate small left lower lobe calcified granuloma. No infiltrate or effusion. Heart not enlarged. Noncontrasted stomach and bowel loops are nonobstructed with normal air-filled appendix. Moderate fecal debris in the right hemicolon. Head of the pancreas demonstrates new 3-4 mm calcification with new distal pancreatic duct prominence up to 4-5 mm. Inferior right kidney demonstrates new nonobstructing punctate calculus. Urinary bladder is again markedly distended more than before with again mild circumferential wall thickening concerning for chronic outlet obstruction versus neurogenic bladder. Again previous cholecystectomy. No free fluid/air. Remaining liver, pancreas, spleen, adrenal glands, kidneys, ureters, and bladder are unremarkable. Again moderate scattered vascular calcifications with aortobifemoral and femorofemoral bypass grafts. No pathologic retroperitoneal lymphadenopathy. Bony thorax intact again with mild osteopenia and degenerative changes throughout the thoracolumbar spine. Impression: 1. New pancreatic duct microcalcification with distal duct prominence. 2. New nonobstructing right renal punctate calculus. 3. Again chronic distended urinary bladder. Rule out outlet obstruction versus neurogenic bladder. 4. Moderate right hemicolon fecal debris. 5. Again incidental scattered arteriosclerotic disease with bypass grafts and chronic bony findings. Comment: Preliminary interpretation by [facility]. No critical discrepancy.
--- NOTE | 2021-01-09 09:47 | XRAY ---
Indication: Port evaluation. Abdomen/back pain, nausea, difficulty urinating. Comparison: April 17, 2014. Portable chest again demonstrates normal heart and lungs with new right Port-A-Cath. Bony thorax intact again with mild osteopenia, degenerative changes, and incompletely visualized inferior cervical fusion hardware. Impression: Nonacute chest with chronic features.
[2021-01-09] MEDS: Sodium Chloride 0.9% W/ 20 mEq KCl/LITER 1,000 ML IV SCH ×2 (10:09→18:31)
[2021-01-09] MEDS: PROTONIX 40 MG IV IV SCH (10:09)
[2021-01-09] MEDS: ZOCOR 20MG PO SCH (11:10)
[2021-01-09] MEDS: Lexapro 10 MG PO SCH (11:10)
[2021-01-09] MEDS: Nicoderm CQ 21 MG TOP SCH (11:39)
[2021-01-09] MEDS: Hydromorphone 1 mg/ml Injection IV PRN ×2 (16:29→21:10)
[2021-01-09] MEDS: Zofran 4 MG/2 ML VIAL IV PRN (20:47)
[2021-01-09] MEDS: ROCEPHIN 1 Gm-D5w 50 ml Bag** 1 G/50 ML IVPB IV SCH (21:10)
[2021-01-10] MEDS: Hydromorphone 1 mg/ml Injection IV PRN ×4 (02:24→09:56)
[2021-01-10] MEDS: Sodium Chloride 0.9% W/ 20 mEq KCl/LITER 1,000 ML IV SCH ×3 (02:25→17:11)
[2021-01-10] MEDS ORDERED: Hydromorphone 1 mg/ml Injection ONE (05:37)
[2021-01-10] MEDS: Zofran 4 MG/2 ML VIAL IV PRN ×3 (05:41→21:03)
[2021-01-10 06:54] LABS: Absolute Neutrophil Ct (ANC) 4.82 (1.4-6.9); BASOPHIL % 0.3 % (0.0-0.4); Basophil (Absolute #) 0.02 (0-0.4); Eosinophil % 2.4 % (0.00-5.0); Eosinophil (Absolute #) 0.18 (0-0.5); Hematocrit 45.2 % (42-50); Hemoglobin 14.3 gm/dl (12.5-18.0); Lymphocyte (Absolute #) 1.77 (1.0-4.6); Lymphocytes % 23.9 % (24.0-44.0); Mean Corpuscular Hemoglobin 28.1 pg (26-32); Mean Corpuscular Hgb Concent. 31.6 g/dl (32-36); Mean Platelet Volume 11.1 fl (7.5-11.0); Monocyte (Absolute #) 0.61 (0.0-1.3); Monocytes % 8.2 % (0.0-12.0); Neutrophil % 65.2 % (36.0-66.0); Platelet Count 181 K/mm3 (150-450); Red Blood Count 5.08 M/mm3 (4.1-5.6); Red Cell Distribution Width 14.5 % (11.5-14.0); White Blood Count 7.4 K/mm3 (4.0-10.5)
[2021-01-10 07:12] LABS: ALBUMIN 3.4 g/dL (3.5-5.0); ALKALINE PHOSPHATASE 102 U/L (38-126); ANION GAP 14.9 MEQ/L (5-15); BLOOD UREA NITROGEN 16 mg/dL (9-20); CHLORIDE 109 mmol/L (98-107); Calcium 8.8 mg/dL (8.4-10.2); Carbon Dioxide 20 mmol/L (22-30); Creatinine 1 0.56 mg/dL (0.66-1.25); EST GLOMERULAR FILTRATION RATE > 60.0 ML/MIN; Potassium 4.8 mmol/L (3.5-5.1); SGOT/AST 19 U/L (17-59); SGPT/ALT 12 U/L (0-50); SODIUM 139 mmol/L (137-145)
[2021-01-10 07:14] LABS: Glucose 49 mg/dL (74-106)
[2021-01-10] MEDS ORDERED: D50W 50 ml Abboject IV ONE ×3 (07:28→20:22)
[2021-01-10] MEDS: Nicoderm CQ 21 MG TOP SCH (09:40)
[2021-01-10] MEDS: Lexapro 10 MG PO SCH (09:40)
[2021-01-10] MEDS: PROTONIX 40 MG IV IV SCH (09:41)
[2021-01-10] MEDS: ZOCOR 20MG PO SCH (09:41)
[2021-01-10] MEDS ORDERED: PLAVIX 75 MG Tablet PO SCH (10:00)
[2021-01-10] MEDS ORDERED: NON-FORMULARY ITEM (Rosuvastatin Calcium [Crestor] 10 MG Tablet) PO SCH (10:00)
[2021-01-10] MEDS: NORCO 7.5/325 MG TAB PO PRN ×3 (13:33→23:04)
[2021-01-10] MEDS: ROCEPHIN 1 Gm-D5w 50 ml Bag** 1 G/50 ML IVPB IV SCH (21:03)
[2021-01-10] MEDS: Dextrose 5% -0.45 NaCl 1000 ML 1,000 ML IV SCH (23:05)
[2021-01-11] MEDS: NORCO 7.5/325 MG TAB PO PRN ×4 (04:54→20:35)
[2021-01-11 05:47] LABS: Absolute Neutrophil Ct (ANC) 2.31 (1.4-6.9); BASOPHIL % 0.4 % (0.0-0.4); Basophil (Absolute #) 0.02 (0-0.4); Eosinophil % 4.6 % (0.00-5.0); Eosinophil (Absolute #) 0.22 (0-0.5); Hematocrit 42.8 % (42-50); Hemoglobin 13.5 gm/dl (12.5-18.0); Lymphocyte (Absolute #) 1.77 (1.0-4.6); Lymphocytes % 36.8 % (24.0-44.0); Mean Cell Volume 88.6 fl (78-100); Mean Corpuscular Hgb Concent. 31.5 g/dl (32-36); Mean Platelet Volume 10.8 fl (7.5-11.0); Monocyte (Absolute #) 0.49 (0.0-1.3); Monocytes % 10.2 % (0.0-12.0); Platelet Count 175 K/mm3 (150-450); Red Blood Count 4.83 M/mm3 (4.1-5.6); Red Cell Distribution Width 14.4 % (11.5-14.0); White Blood Count 4.8 K/mm3 (4.0-10.5)
[2021-01-11 06:00] LABS: ALBUMIN 3.2 g/dL (3.5-5.0); ALKALINE PHOSPHATASE 85 U/L (38-126); ANION GAP 9.3 MEQ/L (5-15); BLOOD UREA NITROGEN 9 mg/dL (9-20); CHLORIDE 108 mmol/L (98-107); Calcium 8.7 mg/dL (8.4-10.2); Carbon Dioxide 24 mmol/L (22-30); Creatinine 1 0.54 mg/dL (0.66-1.25); EST GLOMERULAR FILTRATION RATE > 60.0 ML/MIN; Glucose 143 mg/dL (74-106); LIPASE 643 U/L (23-300); Potassium 4.3 mmol/L (3.5-5.1); SGOT/AST 18 U/L (17-59); SGPT/ALT 11 U/L (0-50); SODIUM 137 mmol/L (137-145); Total Protein 5.7 g/dL (6.3-8.2)
[2021-01-11] MEDS: Dextrose 5% -0.45 NaCl 1000 ML 1,000 ML IV SCH ×2 (07:47→16:34)
[2021-01-11] MEDS: Zofran 4 MG/2 ML VIAL IV PRN (08:20)
--- NOTE | 2021-01-11 09:35 | XRAY ---
Indication: Abdomen pain. Multiple contiguous axial images obtained through the abdomen and pelvis prior to and following 80 cc Isovue 370 contrast as ordered. Enteric contrast also used. Comparison: January 09, 2021. Lung bases demonstrate stable left lower lobe calcified granuloma. No infiltrate or effusion. Heart is not enlarged. Noncontrasted images demonstrates stable nonobstructing right renal micro-calculus. Stable 3-4 mm pancreatic duct calcification with distal duct prominence again of the fourth and 5 mm. No new visceral calcifications/calculi. Stable cholecystectomy clips. Contrasted stomach and bowel loops are nonobstructed again with normal appendix. No free fluid/air. Urinary bladder remains markedly distended with circumferential wall thickening and posterior diverticulum again concerning for chronic outlet obstruction versus neurogenic bladder. Postcontrast images demonstrates normal visceral enhancement and renal excretion. Remaining liver, pancreas, spleen, adrenal glands, kidneys, ureters, and bladder are unremarkable. Stable moderate scattered aortoiliac calcifications with aortobifemoral and femoral-femoral bypass grafts. Both zuni iliac vessels and right common femoral stent graft remain occluded. Stable small periaortic lymph nodes, none pathologically enlarged. Impression: No change compared to CT 2 days ago. Stable pancreatic duct micro-calcification with distal duct prominence, nonobstructing right renal punctate calculus, chronic distended urinary bladder with bladder diverticulum, and scattered arteriosclerotic disease with bypass grafts.
[2021-01-11] MEDS: Lexapro 10 MG PO SCH (09:48)
[2021-01-11] MEDS: ZOCOR 20MG PO SCH (09:48)
[2021-01-11] MEDS: Nicoderm CQ 21 MG TOP SCH (09:49)
[2021-01-11] MEDS: PROTONIX 40 MG IV IV SCH (09:49)
[2021-01-11] MEDS: ROCEPHIN 1 Gm-D5w 50 ml Bag** 1 G/50 ML IVPB IV SCH (21:15)
[2021-01-11] MEDS ORDERED: FLUZONE HIGH-DOSE QUAD 2021-22 IM ONE (22:52)
[2021-01-12] MEDS: Dextrose 5% -0.45 NaCl 1000 ML 1,000 ML IV SCH ×2 (00:08→08:07)
[2021-01-12 05:37] LABS: Hematocrit 42.2 % (42-50); Hemoglobin 13.4 gm/dl (12.5-18.0); Mean Cell Volume 88.3 fl (78-100); Mean Corpuscular Hgb Concent. 31.8 g/dl (32-36); Mean Platelet Volume 10.5 fl (7.5-11.0); Platelet Count 175 K/mm3 (150-450); Red Blood Count 4.78 M/mm3 (4.1-5.6); Red Cell Distribution Width 14.1 % (11.5-14.0); White Blood Count 4.5 K/mm3 (4.0-10.5)
[2021-01-12 06:13] LABS: BLOOD UREA NITROGEN 5 mg/dL (9-20); CHLORIDE 106 mmol/L (98-107); Calcium 8.8 mg/dL (8.4-10.2); Carbon Dioxide 29 mmol/L (22-30); Creatinine 1 0.59 mg/dL (0.66-1.25); EST GLOMERULAR FILTRATION RATE > 60.0 ML/MIN; Glucose 132 mg/dL (74-106); LIPASE 344 U/L (23-300); Potassium 4.3 mmol/L (3.5-5.1); SODIUM 140 mmol/L (137-145)
[2021-01-12] MEDS: Lexapro 10 MG PO SCH (09:04)
[2021-01-12] MEDS: ZOCOR 20MG PO SCH (09:04)
[2021-01-12] MEDS: PROTONIX 40 MG IV IV SCH (09:05)
[2021-01-12] MEDS: Nicoderm CQ 21 MG TOP SCH (09:10)
[2021-01-12] MEDS: NORCO 7.5/325 MG TAB PO PRN (09:14)
[2021-01-12] MEDS ORDERED: FLUZONE HIGH-DOSE QUAD 2021-22 IM ONE (10:00)
[2021-01-18 16:33] VITALS: BP 118/68; PULSE 75; O2SAT 97
== END 2021-01-12 13:13 | disposition home or self-care (01) | DRG 439 ==
LOC: ED 00:55 → MED SURG 09:10 → OBSVTOIN 12:00
PROVIDERS: ADMIT Family Medicine; ATTEND Family Medicine
DX: K85.90 Acute pancreatitis without necrosis or infection, unspecified (principal); N39.0 Urinary tract infection, site not specified; R11.2 Nausea with vomiting, unspecified; I10 Essential (primary) hypertension; I25.10 Atherosclerotic heart disease of native coronary artery without angina pectoris; I49.3 Ventricular premature depolarization; E78.00 Pure hypercholesterolemia, unspecified; J44.9 Chronic obstructive pulmonary disease, unspecified; F17.200 Nicotine dependence, unspecified, uncomplicated; R10.9 Unspecified abdominal pain; Z79.899 Other long term (current) drug therapy; Z20.828 Contact with and (suspected) exposure to other viral communicable diseases; Z79.01 Long term (current) use of anticoagulants
CPT/HCPCS: 36000; 36415; 71045; 74177; 74178; 80048; 80053; 80307; 81001; 82947; 83690; 85025; 85027; 87040; 87077; 87086; 87186; 96365; 96374; 96375; 96376; 99285; G0008; U0003; 90662; J0696; J1170; J1642; J1885; J2405; J3010; A9270-GY

== ENCOUNTER 2021-06-15 10:05 | Emergency (ER) | payer MEDICARE, OTHER ==
--- NOTE | 2021-06-15 10:17 | ERPHSYRPT ---
- History of Present Illness Time Seen by Provider: 06/15/21 10:17 Historian: patient Exam Limitations: no limitations Physician History: This is a 65-year-old white male patient of Dr. Guo who also sees a pain specialist Dr. Ortiz and has a history of CVA, coronary disease, elevated cholesterol, peripheral vascular disease, degenerative disc disease, gastroesophageal reflux disease and depression. He is a current daily smoker of cigarettes. He is also on Plavix. At approximately 5 PM yesterday, patient noticed increasing amounts of gross hematuria. He has a history of a neurogenic bladder and has a suprapubic catheter in place. There is a history of reflux of urine within the bladder and has had formation of blood clots in the past. He has also had to be taken to the operating room because of bleeding around the bladder. He is concerned because he is having increasing amounts of suprapubic pressure and pain since 5 PM yesterday. Timing/Duration: yesterday Activities at Onset: none Quality: aching, pressure Abdominal Pain Onset Location: suprapubic Pain Radiation: no radiation Severity of Pain-Max: moderate Severity of Pain-Current: moderate Modifying Factors: Improves With: nothing Associated Symptoms: denies symptoms Previous symptoms: same symptoms as today Allergies/Adverse Reactions: codeine Adverse Reaction (Intermediate, Verified 06/15/21 10:17) Vomiting Home Medications: Clopidogrel Bisulfate 75 mg [PLAVIX 75 MG Tablet] 75 mg PO UD 09/22/12 [History] Rosuvastatin Calcium [Crestor] 10 mg PO DAILY 02/28/13 [History] Escitalopram Oxalate [Lexapro] 10 mg PO DAILY 01/09/21 [History] Hx Tetanus, Diphtheria Vaccination/Date Given: Yes Hx Influenza Vaccination/Date Given: No Hx Pneumococcal Vaccination/Date Given: No Travel Risk - International Travel Have you traveled outside of the country in past 3 weeks: No - Coronavirus Screening Are you exhibiting any of the following symptoms?: No Close contact with a COVID-19 positive Pt in past 14-21 Days: No - Vaccine Status Have you recieved a Covid-19 vaccination: Yes 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 - Vaccination Dates Date of 2cond Vaccination (if applicable): 05/04/20 - Review of Systems Constitutional: No Symptoms Eyes: No Symptoms Ears, Nose, & Throat: No Symptoms Respiratory: No Symptoms Cardiac: No Symptoms Abdominal/Gastrointestinal: Abdominal Pain (Suprapubic) Genitourinary Symptoms: No Symptoms Musculoskeletal: No Symptoms Skin: No Symptoms Neurological: No Symptoms Psychological: No Symptoms Endocrine: No Symptoms Hematologic/Lymphatic: No Symptoms Immunological/Allergic: No Symptoms All Other Systems: Reviewed and Negative - Past Medical History Pertinent Past Medical History: Yes Neurological History: Stroke ENT History: Other Cardiac History: Coronary Artery Disease, High Cholesterol, Peripheral Vascular Disease Respiratory History: COPD Endocrine Medical History: No Pertinent History Musculoskeletal History: Degenerative Disk Disease GI Medical History: GERD History: Other Psycho-Social History: Depression Male Reproductive Disorders: No Pertinent History Other Medical History: 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 AORTA BYFEMEROL BYPASS - Social History Smoking Status: Current every day smoker How long have you smoked: 1 pack Exposure to second hand smoke: Yes Drug Use: none Patient Lives Alone: No - Nursing Vital Signs Nursing Vital Signs: Initial Vital Signs Temperature 96.5 F 06/15/21 10:18 Pulse Rate 91 H 06/15/21 10:18 Respiratory Rate 18 06/15/21 10:18 Blood Pressure 162/84 06/15/21 10:18 O2 Sat by Pulse Oximetry 99 06/15/21 10:18 Pain Scale Pain Intensity 2 - Physical Exam General Appearance: no apparent distress, alert, anxiety, thin Eye Exam: PERRL/EOMI, eyes nml inspection Ears, Nose, Throat Exam: normal ENT inspection, moist mucous membranes Neck Exam: normal inspection, non-tender, supple, full range of motion Respiratory Exam: normal breath sounds, lungs clear, airway intact, No chest tenderness, No respiratory distress Cardiovascular Exam: regular rate/rhythm, normal heart sounds, normal peripheral pulses Gastrointestinal/Abdomen Exam: soft, normal bowel sounds, tenderness (Suprapubic region.) Rectal Exam: not done Back Exam: normal inspection, normal range of motion, No CVA tenderness, No vertebral tenderness Extremity Exam: normal inspection, normal range of motion, pelvis stable Neurologic Exam: alert, oriented x 3, cooperative, 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 tested, normal mood/affect, nml cerebellar function, nml station & gait, sensation nml Skin Exam: normal color, warm, dry Lymphatic Exam: No adenopathy SpO2 Interpretation: normal O2 Delivery: Room Air - Course Nursing assessment & vital signs reviewed: Yes Ordered Tests: Active Orders 24 hr Category Date Time Status IV Insertion STAT Care 06/15/21 10:43 Active ABDOMEN AND PELVIS W/0 CONTRAS [CT] Stat Exams 06/15/21 10:44 Completed AMYLASE Stat Lab 06/15/21 10:53 Completed BLOOD CULTURE Stat Lab 06/15/21 11:11 Received CBC W DIFF Stat Lab 06/15/21 10:53 Completed CMP Stat Lab 06/15/21 10:53 Completed CULTURE,URINE Stat Lab 06/15/21 10:53 Received CULTURE,URINE Stat Lab 06/15/21 10:53 Received LIPASE Stat Lab 06/15/21 10:53 Completed Lactic Acid Stat Lab 06/15/21 10:43 Completed Medication Summary Discontinued Medications Generic Name Dose Route Start Last Admin Trade Name Freq PRN Reason Stop Dose Admin Hydromorphone HCl 1 mg 06/15/21 10:43 06/15/21 10:57 Hydromorphone 1 Mg/1ml Inj 1 Mg/Ml Syringe IV 06/15/21 10:44 1 mg STAT ONE Administration Hydromorphone HCl Confirm 06/15/21 10:55 Hydromorphone 1 Mg/1ml Inj 1 Mg/Ml Syringe Administered 06/15/21 10:56 Dose 1 mg .ROUTE .STK-MED ONE Sodium Chloride 1,000 mls @ 999 mls/hr 06/15/21 10:43 06/15/21 12:01 Sodium Chloride 0.9% 1000 Ml IV 06/15/21 11:43 Infused .Q1H1M STA Infusion Sodium Chloride Confirm 06/15/21 10:55 Sodium Chloride 0.9% 1000 Ml Administered 06/15/21 10:56 Dose 1,000 mls @ ud .ROUTE .STK-MED ONE Ondansetron HCl 4 mg 06/15/21 10:43 06/15/21 10:57 Ondansetron Hcl 4 Mg/2 Ml Vial IV 06/15/21 10:44 4 mg STAT ONE Administration Ondansetron HCl Confirm 06/15/21 10:55 Ondansetron Hcl 4 Mg/2 Ml Vial Administered 06/15/21 10:56 Dose 4 mg .ROUTE .STK-MED ONE Lab/Rad Data: Laboratory Result Diagrams 06/15/21 10:53 06/15/21 10:53 Laboratory Results 06/15/21 06/15/21 06/15/21 Range/Units 10:53 10:53 10:53 WBC 9.0 (4.0-10.5) K/mm3 RBC 5.41 (4.1-5.6) M/mm3 Hgb 15.5 (12.5-18.0) gm/dl Hct 47.8 (42-50) % MCV 88.4 (78-100) fl MCH 28.7 (26-32) pg MCHC 32.4 (32-36) g/dl RDW 13.9 (11.5-14.0) % Plt Count 279 (150-450) K/mm3 MPV 10.6 (7.5-11.0) fl Gran % 66.8 H (36.0-66.0) % Eos # (Auto) 0.18 (0-0.5) Absolute Lymphs (auto) 2.15 (1.0-4.6) Absolute Monos (auto) 0.66 (0.0-1.3) Lymphocytes % 23.8 L (24.0-44.0) % Monocytes % 7.3 (0.0-12.0) % Eosinophils % 2.0 (0.00-5.0) % Basophils % 0.1 (0.0-0.4) % Absolute Granulocytes 6.03 (1.4-6.9) Basophils # 0.01 (0-0.4) Sodium 141 (137-145) mmol/L Potassium 3.9 (3.5-5.1) mmol/L Chloride 106 (98-107) mmol/L Carbon Dioxide 29 (22-30) mmol/L Anion Gap 10.6 (5-15) MEQ/L BUN 19 (9-20) mg/dL Creatinine 0.64 L (0.66-1.25) mg/dL Estimated GFR > 60.0 ML/MIN Glucose 149 H (74-106) mg/dL Lactic Acid (0.4-2.0) Calcium 9.4 (8.4-10.2) mg/dL Total Bilirubin 0.60 (0.2-1.3) mg/dL AST 18 (17-59) U/L ALT 11 (0-50) U/L Alkaline Phosphatase 120 (38-126) U/L Serum Total Protein 6.9 (6.3-8.2) g/dL Albumin 3.7 (3.5-5.0) g/dL Amylase 155 H (30-110) U/L Lipase 980 H (23-300) U/L Urinalys Dipstick Clnc Pending Urine Color Pending Urine Appearance Pending Urine pH Pending Ur Specific [place] Pending Urine Protein Cancelled POC Urine Protein Conf Pending Urine Ketones Cancelled Urine Blood Cancelled Urine Nitrite Pending Urine Bilirubin Cancelled Urine Urobilinogen Cancelled Ur Leukocyte Esterase Cancelled Urine Leukocytes Pending Urine WBC (Auto) >100 (0-5) /HPF Urine RBC (Auto) >101 (0-2) /HPF Urine Bacteria (Auto) MODERATE (NEGATIVE) /HPF Urine RBC Pending U Non-Squamous Epi Cells Cancelled Urine Mucus (Auto) SLIGHT (NEGATIVE) /HPF Ur Culture Indicated? Pending Urine Culture Reflexed Cancelled Urine Glucose NEGATIVE (NEGATIVE) mg/dL 06/15/21 Range/Units 10:43 WBC (4.0-10.5) K/mm3 RBC (4.1-5.6) M/mm3 Hgb (12.5-18.0) gm/dl Hct (42-50) % MCV (78-100) fl MCH (26-32) pg MCHC (32-36) g/dl RDW (11.5-14.0) % Plt Count (150-450) K/mm3 MPV (7.5-11.0) fl Gran % (36.0-66.0) % Eos # (Auto) (0-0.5) Absolute Lymphs (auto) (1.0-4.6) Absolute Monos (auto) (0.0-1.3) Lymphocytes % (24.0-44.0) % Monocytes % (0.0-12.0) % Eosinophils % (0.00-5.0) % Basophils % (0.0-0.4) % Absolute Granulocytes (1.4-6.9) Basophils # (0-0.4) Sodium (137-145) mmol/L Potassium (3.5-5.1) mmol/L Chloride (98-107) mmol/L Carbon Dioxide (22-30) mmol/L Anion Gap (5-15) MEQ/L BUN (9-20) mg/dL Creatinine (0.66-1.25) mg/dL Estimated GFR ML/MIN Glucose (74-106) mg/dL Lactic Acid 1.6 (0.4-2.0) Calcium (8.4-10.2) mg/dL Total Bilirubin (0.2-1.3) mg/dL AST (17-59) U/L ALT (0-50) U/L Alkaline Phosphatase (38-126) U/L Serum Total Protein (6.3-8.2) g/dL Albumin (3.5-5.0) g/dL Amylase (30-110) U/L Lipase (23-300) U/L Urinalys Dipstick Clnc Urine Color Urine Appearance Urine pH Ur Specific [place] Urine Protein POC Urine Protein Conf Urine Ketones Urine Blood Urine Nitrite Urine Bilirubin Urine Urobilinogen Ur Leukocyte Esterase Urine Leukocytes Urine WBC (Auto) (0-5) /HPF Urine RBC (Auto) (0-2) /HPF Urine Bacteria (Auto) (NEGATIVE) /HPF Urine RBC U Non-Squamous Epi Cells Urine Mucus (Auto) (NEGATIVE) /HPF Ur Culture Indicated? Urine Culture Reflexed Urine Glucose (NEGATIVE) mg/dL - Progress Progress: improved, pain not gone completely, re-examined Progress Note: 06/15/21 12:09 CAT scan of the abdomen and pelvis without contrast shows a new suprapubic catheter with balloon tip in an empty Alexander bladder. Chronic pancreatitis in the head of the pancreas. There are no acute intra-abdominal or intrapelvic findings. Counseled pt/family regarding: lab results, diagnosis, need for follow-up, rad results - Departure Departure Disposition: Home Clinical Impression: Urinary tract infection Condition: Stable Critical Care Time: No Referrals: JAMIE GUO MD [Primary Care Provider] - Follow up/PCP as directed Additional Instructions: Drink plenty of clear liquids before advancing your diet. Take your medication as prescribed. Follow-up with your primary care physician for further evaluation and management. Prescriptions: Ciprofloxacin [Cipro 500 MG] 500 mg PO BID #14 tablet
[2021-06-15] MEDS ORDERED: Hydromorphone 1 mg/ml Injection IV ONE (10:43)
[2021-06-15] MEDS ORDERED: Zofran 4 MG/2 ML VIAL IV ONE (10:43)
[2021-06-15] MEDS ORDERED: Sodium Chloride 0.9% 1000 ML 1,000 ML IV STA (10:43)
[2021-06-15] MEDS ORDERED: Sodium Chloride 0.9% 1000 ML 1,000 ML ONE (10:55)
[2021-06-15] MEDS ORDERED: Zofran 4 MG/2 ML VIAL ONE (10:55)
[2021-06-15] MEDS ORDERED: Hydromorphone 1 mg/ml Injection ONE (10:55)
[2021-06-15 11:14] LABS: Absolute Neutrophil Ct (ANC) 6.03 (1.4-6.9); Basophil (Absolute #) 0.01 (0-0.4); Eosinophil (Absolute #) 0.18 (0-0.5); Hematocrit 47.8 % (42-50); Hemoglobin 15.5 gm/dl (12.5-18.0); Lymphocyte (Absolute #) 2.15 (1.0-4.6); Lymphocytes % 23.8 % (24.0-44.0); Mean Cell Volume 88.4 fl (78-100); Mean Corpuscular Hemoglobin 28.7 pg (26-32); Mean Corpuscular Hgb Concent. 32.4 g/dl (32-36); Mean Platelet Volume 10.6 fl (7.5-11.0); Monocyte (Absolute #) 0.66 (0.0-1.3); Monocytes % 7.3 % (0.0-12.0); Neutrophil % 66.8 % (36.0-66.0); Platelet Count 279 K/mm3 (150-450); Red Blood Count 5.41 M/mm3 (4.1-5.6); Red Cell Distribution Width 13.9 % (11.5-14.0)
[2021-06-15 11:24] LABS: ALBUMIN 3.7 g/dL (3.5-5.0); ALKALINE PHOSPHATASE 120 U/L (38-126); AMYLASE 155 U/L (30-110); ANION GAP 10.6 MEQ/L (5-15); BLOOD UREA NITROGEN 19 mg/dL (9-20); CHLORIDE 106 mmol/L (98-107); Calcium 9.4 mg/dL (8.4-10.2); Carbon Dioxide 29 mmol/L (22-30); Creatinine 1 0.64 mg/dL (0.66-1.25); EST GLOMERULAR FILTRATION RATE > 60.0 ML/MIN; Glucose 149 mg/dL (74-106); LIPASE 980 U/L (23-300); Potassium 3.9 mmol/L (3.5-5.1); SGOT/AST 18 U/L (17-59); SGPT/ALT 11 U/L (0-50); SODIUM 141 mmol/L (137-145); Total Protein 6.9 g/dL (6.3-8.2)
[2021-06-15 11:39] VITALS: O2SAT 98
--- NOTE | 2021-06-15 11:45 | XRAY ---
Indication: Hematuria. Multiple contiguous axial images obtained through the abdomen and pelvis without contrast using renal stone protocol. Comparison: January 11, 2021. Lung bases again demonstrates pulmonary emphysema and small left lower lobe calcified granuloma. Heart not enlarged. Stable nonobstructing right renal micro-calculus. No new renal calculus or evidence for obstructive uropathy. Urinary bladder empty with new suprapubic catheter. Noncontrasted stomach and bowel loops again was normal appendix. Head of pancreas demonstrates stable 6 mm chronic pancreatitis calcification. Again cholecystectomy clips. No free fluid/air. Remaining liver, pancreas, spleen, adrenal glands, kidneys, and ureters are unremarkable for noncontrast exam. There remains diffuse moderate aortoiliac calcifications with aortobifemoral and femoral-femoral bypass stent grafts. Lack of IV contrast precludes further characterization. Osseous structures intact again with mild/moderate degenerative changes throughout the thoracolumbar spine and both hips. Impression: 1. Stable nonobstructing right renal micro-calculus. No new renal calculus or evidence for obstructive uropathy. 2. New suprapubic catheter with balloon tip in empty urinary bladder. 3. Again chronic findings including pulmonary emphysema, chronic pancreatitis calcification, arteriosclerotic disease with stent grafts, chronic bony findings, and old granulomatous disease.
[2021-06-15 13:21] LABS: Bacteria MODERATE /HPF (NEGATIVE); Mucus SLIGHT /HPF (NEGATIVE); RBC >101 /HPF (0-2); WBC >100 /HPF (0-5)
[2021-06-15 13:22] LABS: Glucose NEGATIVE (NEGATIVE)
[2021-06-15] MEDS ORDERED: ROCEPHIN 1 Gm-D5w 50 ml Bag** 1 G/50 ML IVPB IV STA (13:30)
[2021-06-15 13:31] LABS: Appearance CLOUDY (CLEAR); Bilirubin NEGATIVE (NEGATIVE); Ketones NEGATIVE (NEGATIVE); Nitrite POSITIVE (NEGATIVE); Ph 6.5 (5-6); Protein,Urine Dip 100 (Negative); RBC LARGE Ery/ul (0-5); Specific Gravity 1.025 (1.005-1.025); Urobilinogen 0.2 mg/dL (0-1)
[2021-06-15 13:32] LABS: Dipstick done @ ? MAIN LAB; Urine Cultured Indicated? YES
[2021-06-15] MEDS ORDERED: ROCEPHIN 1 Gm-D5w 50 ml Bag** 1 G/50 ML IVPB IV ONE (13:44)
[2021-06-15 14:12] VITALS: BP 151/85; PULSE 70
== END 2021-06-15 14:22 | disposition home or self-care (01) ==
LOC: ED 10:05
DX: N39.0 Urinary tract infection, site not specified (principal); R10.2 Pelvic and perineal pain; R31.0 Gross hematuria; N31.9 Neuromuscular dysfunction of bladder, unspecified; E78.5 Hyperlipidemia, unspecified; I73.9 Peripheral vascular disease, unspecified; J44.9 Chronic obstructive pulmonary disease, unspecified; K21.9 Gastro-esophageal reflux disease without esophagitis; Z72.0 Tobacco use; Z79.01 Long term (current) use of anticoagulants; Z79.899 Other long term (current) drug therapy
CPT/HCPCS: 36000; 36415; 74176; 80053; 81015; 82150; 83605; 83690; 85025; 87040; 87077; 87086; 87186; 96360; 96374; 96375; 99284; J0696; J1170; J1642; J2405

== ENCOUNTER 2021-07-10 09:48 | Emergency (ER) | payer MEDICARE, OTHER ==
--- NOTE | 2021-07-10 10:44 | ERPHSYRPT ---
- History of Present Illness Time Seen by Provider: 07/10/21 10:00 Source: patient Patient Subjective Stated Complaint: hematuria, possible UTI, abd pain Triage Nursing Assessment: pt to ED c/o hematuria, abd pain and possible UTI. pt has permanent catheter and reports recurring UTIs. "I get these about every 2 months." states abd pain began around 2 days ago but noticed hematura this morning. rates 7/10 pain. originates in lower back and radiates around to abd bilaerally. also reports emesis x 4 yesterday. Physician History: 65-year-old male with history of stroke with bladder dysfunction status post permanent suprapubic indwelling catheter placement, multiple UTIs in the past presented in the ER with suprapubic pain since yesterday with radiation to bilateral groin and lower back moderate intensity, sharp nature with associated nausea and 3 episodes of vomiting yesterday. This morning he started to have hematuria. Patient reports having similar symptoms in the past with UTI. No fever or chills reported. Timing/Duration: yesterday, gradual onset Activites at Onset: none Quality: dullness, sharpness Onset Location: suprapubic, low back Pain Radiation: right flank, left flank Severity of Pain-Max: moderate Severity of Pain-Current: moderate Modifying Factors: Worsens With: movement, palpation, urinating Associated Symptoms: abdominal pain, lower back pain Prior abdominal problems: none Sexual intercourse history: non-contributory Allergies/Adverse Reactions: codeine Adverse Reaction (Intermediate, Verified 07/10/21 10:06) Vomiting Home Medications: Clopidogrel Bisulfate 75 mg [PLAVIX 75 MG Tablet] 75 mg PO UD 09/22/12 [History] Rosuvastatin Calcium [Crestor] 10 mg PO DAILY 02/28/13 [History] Escitalopram Oxalate [Lexapro] 10 mg PO DAILY 01/09/21 [History] Hx Tetanus, Diphtheria Vaccination/Date Given: Yes Hx Influenza Vaccination/Date Given: No Hx Pneumococcal Vaccination/Date Given: No Immunizations Up to Date: No Travel Risk - International Travel Have you traveled outside of the country in past 3 weeks: No - Coronavirus Screening Are you exhibiting any of the following symptoms?: No Close contact with a COVID-19 positive Pt in past 14-21 Days: No - Vaccine Status Have you recieved a Covid-19 vaccination: Yes 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 [employer] Vaccination Dates Date of 2cond Vaccination (if applicable): 2020 - Past Medical History Pertinent Past Medical History: Yes Neurological History: Stroke ENT History: Other Cardiac History: Coronary Artery Disease, High Cholesterol, Peripheral Vascular Disease Respiratory History: COPD Endocrine Medical History: No Pertinent History Musculoskeletal History: Degenerative Disk Disease, Osteoarthritis GI Medical History: GERD History: Other Psycho-Social History: Depression Male Reproductive Disorders: No Pertinent History Other Medical History: SX HX: CERVICAL FUSION, VASCULAR SURGERY NOTED, PLACEMENT OF SUPRAPUBIC CATHETER FOR NEUROGENIC BLADDER, CAROTID ENDARTERECTOMY DOROTEO, AORTA/BIFEM BYPASS, FEM-FEM BYPASS, CHOLECYSTECTOMY. OTHER HX: GERD, DEPRESSION, HX OF BLOOD CLOTS, BLADDER BLEEDING AND UTIS - Past Surgical History Past Surgical History: Yes Neuro Surgical History: No Pertinent History Cardiac: Vascular Surgery, Angioplasty Respiratory: No Pertinent History Gastrointestinal: Cholecystectomy Genitourinary: Other Musculoskeletal: Orthopedic Surgery Male Surgical History: No Pertinent History Other Surgical History: FEM-FEM BYPASS - BRACHIAL STENTS - DOROTEO CAROTID ENDARTERECTOM PER ROSEER THIS YEAR - CERVICAL FUSION - CYSTOSCOPY WITH LARGE CLOT REMOVED FROM BLADDER. AORTA BYFEMEROL BYPASS - Social History Smoking Status: Current every day smoker How long have you smoked: years Exposure to second hand smoke: Yes Drug Use: none Patient Lives Alone: No - Review of Systems Constitutional: No Symptoms Eyes: No Symptoms Ears, Nose, & Throat: No Symptoms Respiratory: No Symptoms Cardiac: No Symptoms Abdominal/Gastrointestinal: Abdominal Pain, Nausea, Vomiting Genitourinary Symptoms: Hematuria Musculoskeletal: Arthralgias, Back Pain Skin: No Symptoms Neurological: No Headache, No Sensory Changes Psychological: No Symptoms Endocrine: No Symptoms Hematologic/Lymphatic: No Symptoms Immunological/Allergic: No Symptoms - Nursing Vital Signs Nursing Vital Signs: Initial Vital Signs Temperature 97.3 F 07/10/21 10:08 Pulse Rate 93 H 07/10/21 10:08 Respiratory Rate 18 07/10/21 10:08 Blood Pressure 133/81 07/10/21 10:08 O2 Sat by Pulse Oximetry 98 07/10/21 10:08 Pain Scale Pain Intensity 3 - Physical Exam General Appearance: no apparent distress, alert Eye Exam: PERRL/EOMI Ears, Nose, Throat Exam: normal ENT inspection, pharynx normal Neck Exam: normal inspection, supple, full range of motion Respiratory Exam: normal breath sounds, lungs clear Cardiovascular Exam: regular rate/rhythm, normal heart sounds Gastrointestinal/Abdomen Exam: soft, normal bowel sounds, tenderness (Lower abdomen. Suprapubic catheter while in place.) Back Exam: normal inspection, normal range of motion, No CVA tenderness Extremity Exam: normal inspection, normal range of motion Neurologic Exam: alert, oriented x 3, cooperative Skin Exam: normal color SpO2 Interpretation: normal SpO2: 98 O2 Delivery: Room Air Ordered Tests: Active Orders 24 hr Category Date Time Status Bladder Irrigation STAT Care 07/10/21 10:45 Active IV Insertion STAT Care 07/10/21 10:45 Active ABDOMEN AND PELVIS W/0 CONTRAS [CT] Stat Exams 07/10/21 10:46 Taken CBC W DIFF Stat Lab 07/10/21 11:15 Completed CMP Stat Lab 07/10/21 11:15 Completed CULTURE,URINE Stat Lab 07/10/21 10:11 Received LIPASE Stat Lab 07/10/21 11:15 Completed UA W/RFX CULTURE Stat Lab 07/10/21 10:11 Completed Medication Summary Discontinued Medications Generic Name Dose Route Start Last Admin Trade Name Freq PRN Reason Stop Dose Admin Sodium Chloride 1,000 mls @ 999 mls/hr 07/10/21 10:45 07/10/21 11:30 Sodium Chloride 0.9% 1000 Ml IV 07/10/21 11:45 999 mls/hr .Q1H1M STA Administration Ceftriaxone Sodium/Dextrose 2 g in 50 mls @ 100 mls/hr 07/10/21 10:47 07/10/21 12:00 Rocephin 2 Gm-D5w 50ml Bag IV 07/10/21 11:16 Infused STAT STA Infusion Sodium Chloride Confirm 07/10/21 11:25 Sodium Chloride 0.9% 1000 Ml Administered 07/10/21 11:26 Dose 1,000 mls @ ud .ROUTE .STK-MED ONE Ceftriaxone Sodium/Dextrose Confirm 07/10/21 11:25 Rocephin 2 Gm-D5w 50ml Bag Administered 07/10/21 11:26 Dose 2 g in 50 mls @ ud IV .STK-MED ONE Morphine Sulfate 4 mg 07/10/21 11:20 07/10/21 11:30 Morphine Sulfate 4 Mg/Ml Injection IV 07/10/21 11:21 4 mg STAT ONE Administration Morphine Sulfate Confirm 07/10/21 11:25 Morphine Sulfate 4 Mg/Ml Injection Administered 07/10/21 11:26 Dose 4 mg .ROUTE .STK-MED ONE Ondansetron HCl 4 mg 07/10/21 10:45 07/10/21 11:30 Ondansetron Hcl 4 Mg/2 Ml Vial IV 07/10/21 10:46 4 mg STAT ONE Administration Ondansetron HCl Confirm 07/10/21 11:25 Ondansetron Hcl 4 Mg/2 Ml Vial Administered 07/10/21 11:26 Dose 4 mg .ROUTE .STK-MED ONE Lab/Rad Data: Laboratory Result Diagrams 07/10/21 11:15 07/10/21 11:15 Laboratory Results 07/10/21 07/10/21 07/10/21 Range/Units 11:15 11:15 10:11 WBC 9.1 (4.0-10.5) K/mm3 RBC 5.86 H (4.1-5.6) M/mm3 Hgb 16.7 (12.5-18.0) gm/dl Hct 50.2 H (42-50) % MCV 85.7 (78-100) fl MCH 28.5 (26-32) pg MCHC 33.3 (32-36) g/dl RDW 14.1 H (11.5-14.0) % Plt Count 232 (150-450) K/mm3 MPV 10.1 (7.5-11.0) fl Gran % 68.0 H (36.0-66.0) % Eos # (Auto) 0.08 (0-0.5) Absolute Lymphs (auto) 2.21 (1.0-4.6) Absolute Monos (auto) 0.60 (0.0-1.3) Lymphocytes % 24.4 (24.0-44.0) % Monocytes % 6.6 (0.0-12.0) % Eosinophils % 0.9 (0.00-5.0) % Basophils % 0.1 (0.0-0.4) % Absolute Granulocytes 6.16 (1.4-6.9) Basophils # 0.01 (0-0.4) Sodium 137 (137-145) mmol/L Potassium 4.3 (3.5-5.1) mmol/L Chloride 102 (98-107) mmol/L Carbon Dioxide 30 (22-30) mmol/L Anion Gap 9.4 (5-15) MEQ/L BUN 14 (9-20) mg/dL Creatinine 0.70 (0.66-1.25) mg/dL Estimated GFR > 60.0 ML/MIN Glucose 131 H (74-106) mg/dL Calcium 9.5 (8.4-10.2) mg/dL Total Bilirubin 1.10 (0.2-1.3) mg/dL AST 25 (17-59) U/L ALT 16 (0-50) U/L Alkaline Phosphatase 134 H (38-126) U/L Serum Total Protein 7.9 (6.3-8.2) g/dL Albumin 4.3 (3.5-5.0) g/dL Lipase 171 (23-300) U/L Urinalys Dipstick Clnc MAIN LAB Urine Color RED (YELLOW) Urine Appearance TURBID (CLEAR) Urine pH 7.0 (5-6) Ur Specific [place] 1.020 (1.005-1.025) POC Urine Protein Conf >=300 (Negative) Urine Ketones MODERATE-40 (NEGATIVE) Urine Nitrite POSITIVE (NEGATIVE) Urine Bilirubin LARGE (NEGATIVE) Urine Urobilinogen >=8.0 (0-1) mg/dL Urine Leukocytes LARGE (NEGATIVE) Urine WBC (Auto) >100 (0-5) /HPF Urine RBC (Auto) >101 (0-2) /HPF U Epithel Cells (Auto) FEW (FEW) /HPF Urine Bacteria (Auto) FEW (NEGATIVE) /HPF Urine RBC LARGE (0-5) Nate/ul Ur Culture Indicated? YES Urine Glucose 250 (NEGATIVE) mg/dL - Progress Progress: improved Progress Note: 07/10/21 12:13 65-year-old is evaluated for hematuria, low back pain/flank pain with positive UTI. Is given a dose of Rocephin IV in here along with fluid bolus. Started on continuous bladder irrigation and it cleared. CT showed finding consistent with cystitis but no other acute findings. Has normal white count, grossly unre markable chemistries. We will continue with antibiotics to go home and outpatient primary care urology follow-up recommended. Discussed signs symptoms of worsening needing return to ER which he seems understanding. Counseled pt/family regarding: lab results, diagnosis, need for follow-up, rad results - Departure Departure Disposition: Home Clinical Impression: Hemorrhagic cystitis Condition: Stable Critical Care Time: No Referrals: JAMIE GUO MD [Primary Care Provider] - Follow up/PCP as directed (2 days for reevaluation) HARSHA FREGOSO [COURTESY STAFF] - Follow up/PCP as directed (In 2 days for reevaluation) Instructions: Urinary Tract Infection, Adult (DC) Additional Instructions: Take Tylenol/ibuprofen as needed. Drink plenty of fluids. Follow-up with [facility] and urology for reevaluation. Return to ER if having blood in urine again, increasing pain, fever chills, intractable vomiting etc. Prescriptions: Levofloxacin [Levaquin 500 MG Tablet] 500 mg PO DAILY #7 tablet
[2021-07-10] MEDS ORDERED: Zofran 4 MG/2 ML VIAL IV ONE (10:45)
[2021-07-10] MEDS ORDERED: Sodium Chloride 0.9% 1000 ML 1,000 ML IV STA (10:45)
[2021-07-10] MEDS ORDERED: ROCEPHIN 2 Gm-D5w 50ML BAG** 2 G/50 ML IVPB IV STA (10:47)
[2021-07-10 10:57] LABS: Bacteria FEW /HPF (NEGATIVE); WBC >100 /HPF (0-5)
[2021-07-10 10:58] LABS: Appearance TURBID (CLEAR); Glucose 250 mg/dL (NEGATIVE)
[2021-07-10 10:59] LABS: Bilirubin LARGE (NEGATIVE); Dipstick done @ ? MAIN LAB; Ketones MODERATE-40 (NEGATIVE); Nitrite POSITIVE (NEGATIVE); Protein,Urine Dip >=300 (Negative); RBC LARGE Ery/ul (0-5); Urobilinogen >=8.0 mg/dL (0-1)
[2021-07-10 11:00] LABS: Epithelial Cells FEW /HPF (FEW); RBC >101 /HPF (0-2); Urine Cultured Indicated? YES
[2021-07-10] MEDS ORDERED: MORPHINE SULFATE 4 MG INJ IV ONE (11:20)
[2021-07-10] MEDS ORDERED: MORPHINE SULFATE 4 MG INJ ONE (11:25)
[2021-07-10] MEDS ORDERED: ROCEPHIN 2 Gm-D5w 50ML BAG** 2 G/50 ML IVPB IV ONE (11:25)
[2021-07-10] MEDS ORDERED: Sodium Chloride 0.9% 1000 ML 1,000 ML ONE (11:25)
[2021-07-10] MEDS ORDERED: Zofran 4 MG/2 ML VIAL ONE (11:25)
[2021-07-10 11:32] LABS: Absolute Neutrophil Ct (ANC) 6.16 (1.4-6.9); Basophil (Absolute #) 0.01 (0-0.4); Eosinophil % 0.9 % (0.00-5.0); Eosinophil (Absolute #) 0.08 (0-0.5); Hematocrit 50.2 % (42-50); Hemoglobin 16.7 gm/dl (12.5-18.0); Lymphocyte (Absolute #) 2.21 (1.0-4.6); Lymphocytes % 24.4 % (24.0-44.0); Mean Cell Volume 85.7 fl (78-100); Mean Corpuscular Hemoglobin 28.5 pg (26-32); Mean Corpuscular Hgb Concent. 33.3 g/dl (32-36); Mean Platelet Volume 10.1 fl (7.5-11.0); Monocytes % 6.6 % (0.0-12.0); Platelet Count 232 K/mm3 (150-450); Red Blood Count 5.86 M/mm3 (4.1-5.6); Red Cell Distribution Width 14.1 % (11.5-14.0); White Blood Count 9.1 K/mm3 (4.0-10.5)
[2021-07-10 11:42] LABS: ALBUMIN 4.3 g/dL (3.5-5.0); ALKALINE PHOSPHATASE 134 U/L (38-126); ANION GAP 9.4 MEQ/L (5-15); BLOOD UREA NITROGEN 14 mg/dL (9-20); CHLORIDE 102 mmol/L (98-107); Calcium 9.5 mg/dL (8.4-10.2); Carbon Dioxide 30 mmol/L (22-30); EST GLOMERULAR FILTRATION RATE > 60.0 ML/MIN; Glucose 131 mg/dL (74-106); LIPASE 171 U/L (23-300); Potassium 4.3 mmol/L (3.5-5.1); SGOT/AST 25 U/L (17-59); SGPT/ALT 16 U/L (0-50); SODIUM 137 mmol/L (137-145); Total Protein 7.9 g/dL (6.3-8.2)
[2021-07-10 12:27] VITALS: BP 125/76; PULSE 84; O2SAT 96
--- NOTE | 2021-07-10 21:06 | XRAY ---
Indication: Abdomen pain 2 days. Hematuria. Multiple contiguous axial images obtained through the abdomen and pelvis without contrast. Comparison: June 15, 2021. Lung bases again demonstrates mild pulmonary emphysema and small left lower lobe calcified granuloma. No infiltrate or effusion. Heart not enlarged. Noncontrasted stomach and bowel loops remain nonobstructed. Appendix not visualized. No free fluid/air. Stable chronic pancreatitis calcification, cholecystectomy, nonobstructing right renal micro-calculus, and suprapubic catheter. Remaining liver, pancreas, spleen, adrenal glands, kidneys, ureters, and bladder are unremarkable for noncontrast exam. Again moderate diffuse scattered vascular calcifications with aortobifemoral and femoral-femoral bypass grafts. Lack of IV contrast again precludes further characterization. Osseous structures intact again with mild/moderate degenerative changes throughout spine. Impression: Stable nonobstructive right renal micro-calculus, chronic pancreatitis calcification, suprapubic catheter, pulmonary emphysema, arteriosclerotic disease within grafts, chronic bony findings, and old granulomatous disease. No new/acute findings. Comment: Preliminary interpretation made by C. No critical discrepancy.
== END 2021-07-10 12:31 | disposition home or self-care (01) ==
LOC: ED 09:48
DX: N30.91 Cystitis, unspecified with hematuria (principal); R10.2 Pelvic and perineal pain; R11.2 Nausea with vomiting, unspecified; M54.50 Low back pain, unspecified; E78.5 Hyperlipidemia, unspecified; J44.9 Chronic obstructive pulmonary disease, unspecified; Z79.01 Long term (current) use of anticoagulants; Z72.0 Tobacco use; Z79.899 Other long term (current) drug therapy
CPT/HCPCS: 36000; 36415; 74176; 80053; 81015; 83690; 85025; 87077; 87086; 87186; 96365; 96374; 96375; 99284; J0696; J2270; J2405

== ENCOUNTER 2022-01-15 18:26 | Emergency (ER) | payer MEDICARE, OTHER ==
[2022-01-15] MEDS ORDERED: Zofran 4 MG/2 ML VIAL IV ONE (19:09)
[2022-01-15] MEDS ORDERED: MORPHINE SULFATE 4 MG INJ IV ONE (19:09)
[2022-01-15] MEDS ORDERED: Zofran 4 MG/2 ML VIAL ONE (19:29)
[2022-01-15] MEDS ORDERED: MORPHINE SULFATE 4 MG INJ ONE (19:29)
[2022-01-15 20:06] LABS: Absolute Neutrophil Ct (ANC) 6.63 x10^3/uL (1.4-6.9); Basophil (Absolute #) 0.06 x10^3/uL (0-0.4); Eosinophil % 1.8 % (0.00-5.0); Eosinophil (Absolute #) 0.18 x10^3/uL (0-0.5); Hematocrit 42.6 % (42-50); Hemoglobin 14.2 g/dL (12.5-18.0); Lymphocyte (Absolute #) 2.18 x10^3/uL (1.0-4.6); Lymphocytes % 22.1 % (24.0-44.0); Mean Cell Volume 85.9 fL (78-100); Mean Corpuscular Hemoglobin 28.6 pg (26-32); Mean Corpuscular Hgb Concent. 33.3 g/dL (32-36); Mean Platelet Volume 10.9 fL (7.5-11.0); Monocyte (Absolute #) 0.78 x10^3/uL (0.0-1.3); Monocytes % 7.9 % (0.0-12.0); Neutrophil % 67.3 % (36.0-66.0); Platelet Count 275 x10^3/uL (150-450); Red Blood Count 4.96 x10^6/uL (4.1-5.6); White Blood Count 9.9 x10^3/uL (4.0-10.5)
[2022-01-15 20:18] LABS: ALBUMIN 3.8 g/dL (3.5-5.0); ALKALINE PHOSPHATASE 155 U/L (38-126); ANION GAP 10.1 MEQ/L (5-15); BLOOD UREA NITROGEN 13 mg/dL (9-20); CHLORIDE 98 mmol/L (98-107); Calcium 8.9 mg/dL (8.4-10.2); Carbon Dioxide 29 mmol/L (22-30); Creatinine 1 0.59 mg/dL (0.66-1.25); EST GLOMERULAR FILTRATION RATE > 60.0 ML/MIN; Glucose 207 mg/dL (74-106); LIPASE 253 U/L (23-300); SGOT/AST 16 U/L (17-59); SGPT/ALT 13 U/L (0-50); SODIUM 133 mmol/L (137-145); Total Protein 7.9 g/dL (6.3-8.2)
--- NOTE | 2022-01-15 20:21 | ERPHSYRPT ---
- History of Present Illness Time Seen by Provider: 01/15/22 18:31 Historian: patient Exam Limitations: no limitations Patient Subjective Stated Complaint: flank pain x4-5 days Triage Nursing Assessment: pt to ED c/o bilateral flank pain x4-5 days. pt has FC in place on arrival and leg bag emptied. dark titus urine obtained. pt states "my urine has been really dark and it feels like I got kicked in the back." rates 8/10 pain now that worsens with position change/standing. pt has had FC in place for approx 7 years d/t bladder issues. pt reports hx freq UTIs- takes maintance dose abx q night for prophylaxis ordered per Dr Gou. Physician History: 66 years old male with history of coronary artery disease, peripheral vascular disease, chronic back and neck pain, hypertension, hyperlipidemia, diabetes mellitus presented in the ER with chief complaint of low back and some left flank/sacroiliac area for the last 4 to 5 days with progressive worsening. More with movements and better with resting. Patient has history of stroke and neurogenic bladder and suprapubic indwelling catheter. Pain is also aggravated with lifting legs. No loss of bowel control or perineal numbness or lower extremity numbness/weakness. No nausea vomiting or diarrhea reported. No fever or chills. Patient does have [place] at home but has taken only 1 times today. Patient does have history of pancreatic duct stone for which he is going to follow-up with [facility]. Concerned about UTI/pyelonephritis. Timing/Duration: day(s) (5), gradual onset, worse Activities at Onset: rest Quality: sharpness Abdominal Pain Onset Location: flank Pain Radiation: no radiation Severity of Pain-Max: severe Severity of Pain-Current: severe Modifying Factors: Worsens With: movement, position Associated Symptoms: denies symptoms Allergies/Adverse Reactions: codeine Adverse Reaction (Intermediate, Verified 01/15/22 18:47) Vomiting Home Medications: Clopidogrel Bisulfate [PLAVIX Tablet] 75 mg PO UD 09/22/12 [History] Rosuvastatin Calcium [Crestor] 10 mg PO DAILY 02/28/13 [History] Escitalopram Oxalate [Lexapro] 10 mg PO DAILY 01/09/21 [History] Levofloxacin [Levaquin 500 MG Tablet] 250 mg PO DAILY 01/15/22 [History] Hx Tetanus, Diphtheria Vaccination/Date Given: Yes Hx Influenza Vaccination/Date Given: No Hx Pneumococcal Vaccination/Date Given: No Immunizations Up to Date: Yes Travel Risk - International Travel Have you traveled outside of the country in past 3 weeks: No - Coronavirus Screening Are you exhibiting any of the following symptoms?: No Close contact with a COVID-19 positive Pt in past 14-21 Days: No - Vaccine Status Have you recieved a Covid-19 vaccination: Yes 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 - Vaccination Dates Date of 2cond Vaccination (if applicable): 2020 - Review of Systems Constitutional: No Symptoms Eyes: No Symptoms Ears, Nose, & Throat: No Symptoms Respiratory: No Symptoms Cardiac: No Symptoms Abdominal/Gastrointestinal: Abdominal Pain Genitourinary Symptoms: No Symptoms Musculoskeletal: Back Pain Skin: No Symptoms Neurological: No Symptoms Psychological: No Symptoms Endocrine: No Symptoms Hematologic/Lymphatic: No Symptoms - Past Medical History Pertinent Past Medical History: Yes Neurological History: Stroke ENT History: Other Cardiac History: Coronary Artery Disease, High Cholesterol, Peripheral Vascular Disease Respiratory History: COPD Endocrine Medical History: Diabetes Type II Musculoskeletal History: Degenerative Disk Disease, Osteoarthritis GI Medical History: GERD History: Other Psycho-Social History: Depression Male Reproductive Disorders: No Pertinent History Other Medical History: SX HX: CERVICAL FUSION, VASCULAR SURGERY NOTED, PLACEMENT OF SUPRAPUBIC CATHETER FOR NEUROGENIC BLADDER, CAROTID ENDARTERECTOMY DOROTEO, AORTA/BIFEM BYPASS, FEM-FEM BYPASS, CHOLECYSTECTOMY. OTHER HX: GERD, DEPRESSION, HX OF BLOOD CLOTS, BLADDER BLEEDING AND UTIS - Past Surgical History Past Surgical History: Yes Neuro Surgical History: No Pertinent History Cardiac: Vascular Surgery, Angioplasty Respiratory: No Pertinent History Gastrointestinal: Cholecystectomy Genitourinary: Other Musculoskeletal: Orthopedic Surgery Male Surgical History: No Pertinent History Other Surgical History: FEM-FEM BYPASS - BRACHIAL STENTS - DOROTEO CAROTID ENDARTERECTOM PER ROSEER THIS YEAR - CERVICAL FUSION - CYSTOSCOPY WITH LARGE CLOT REMOVED FROM BLADDER. AORTA BYFEMEROL BYPASS - Social History Smoking Status: Current every day smoker How long have you smoked: years Exposure to second hand smoke: No Drug Use: none Patient Lives Alone: No - Nursing Vital Signs Nursing Vital Signs: Initial Vital Signs Temperature 97.6 F 01/15/22 18:50 Pulse Rate 80 01/15/22 18:50 Respiratory Rate 18 01/15/22 18:50 Blood Pressure 132/69 01/15/22 18:50 O2 Sat by Pulse Oximetry 99 01/15/22 18:50 Pain Scale Pain Intensity 3 - Physical Exam General Appearance: no apparent distress, alert Eye Exam: PERRL/EOMI Ears, Nose, Throat Exam: normal ENT inspection Neck Exam: normal inspection, full range of motion Respiratory Exam: normal breath sounds, lungs clear Cardiovascular Exam: regular rate/rhythm, normal heart sounds Gastrointestinal/Abdomen Exam: soft, normal bowel sounds, tenderness Back Exam: normal inspection, decreased range of motion, muscle spasm (Left sacroiliac area/lumbar paraspinal area), No normal range of motion, No CVA tenderness Extremity Exam: normal inspection, normal range of motion Neurologic Exam: alert, oriented x 3, cooperative Skin Exam: normal color SpO2 Interpretation: normal SpO2: 98 O2 Delivery: Room Air Ordered Tests: Active Orders 24 hr Category Date Time Status IV Insertion STAT Care 01/15/22 19:09 Active NPO (ED) STAT Care 01/15/22 19:09 Active ABDOMEN AND PELVIS W/0 CONTRAS [CT] Stat Exams 01/15/22 19:09 Taken CBC W DIFF Stat Lab 01/15/22 19:40 Completed CMP Stat Lab 01/15/22 19:40 Completed CULTURE,URINE Stat Lab 01/15/22 19:45 Received LIPASE Stat Lab 01/15/22 19:40 Completed Lactic Acid Stat Lab 01/15/22 20:05 Completed UA W/RFX CULTURE Stat Lab 01/15/22 19:45 Completed Medication Summary Discontinued Medications Generic Name Dose Route Start Last Admin Trade Name Freq PRN Reason Stop Dose Admin Ceftriaxone Sodium/Dextrose 2 g in 50 mls @ 100 mls/hr 01/15/22 20:41 01/15/22 21:15 Rocephin 2 Gm-D5w 50ml Bag IV 01/15/22 21:10 Infused STAT STA Infusion Ceftriaxone Sodium/Dextrose Confirm 01/15/22 20:43 Rocephin 2 Gm-D5w 50ml Bag Administered 01/15/22 20:44 Dose 2 g in 50 mls @ ud IV .STK-MED ONE Morphine Sulfate 4 mg 01/15/22 19:09 01/15/22 19:30 Morphine Sulfate 4 Mg/Ml Injection IV 01/15/22 19:10 4 mg STAT ONE Administration Morphine Sulfate Confirm 01/15/22 19:29 Morphine Sulfate 4 Mg/Ml Injection Administered 01/15/22 19:30 Dose 4 mg .ROUTE .STK-MED ONE Ondansetron HCl 4 mg 01/15/22 19:09 01/15/22 19:30 Ondansetron Hcl 4 Mg/2 Ml Vial IV 01/15/22 19:10 4 mg STAT ONE Administration Ondansetron HCl Confirm 01/15/22 19:29 Ondansetron Hcl 4 Mg/2 Ml Vial Administered 01/15/22 19:30 Dose 4 mg .ROUTE .K-MED ONE Lab/Rad Data: Laboratory Result Diagrams 01/15/22 19:40 01/15/22 19:40 Laboratory Results 01/15/22 01/15/22 01/15/22 Range/Units 20:05 19:45 19:40 WBC (4.0-10.5) x10^3/uL RBC (4.1-5.6) x10^6/uL Hgb (12.5-18.0) g/dL Hct (42-50) % MCV (78-100) fL MCH (26-32) pg MCHC (32-36) g/dL RDW (11.5-14.0) % Plt Count (150-450) x10^3/uL MPV (7.5-11.0) fL Gran % (36.0-66.0) % Immature Gran % (Auto) (0.00-0.4) % Nucleat RBC Rel Count (0.00-0.1) % Eos # (Auto) (0-0.5) x10^3/uL Immature Gran # (Auto) (0.00-0.03) x10^3u/L Absolute Lymphs (auto) (1.0-4.6) x10^3/uL Absolute Monos (auto) (0.0-1.3) x10^3/uL Absolute Nucleated RBC (0.00-0.01) x10^3u/L Lymphocytes % (24.0-44.0) % Monocytes % (0.0-12.0) % Eosinophils % (0.00-5.0) % Basophils % (0.0-0.4) % Absolute Granulocytes (1.4-6.9) x10^3/uL Basophils # (0-0.4) x10^3/uL Sodium 133 L (137-145) mmol/L Potassium 4.0 (3.5-5.1) mmol/L Chloride 98 (98-107) mmol/L Carbon Dioxide 29 (22-30) mmol/L Anion Gap 10.1 (5-15) MEQ/L BUN 13 (9-20) mg/dL Creatinine 0.59 L (0.66-1.25) mg/dL Estimated GFR > 60.0 ML/MIN Glucose 207 H (74-106) mg/dL Lactic Acid 1.0 (0.4-2.0) Calcium 8.9 (8.4-10.2) mg/dL Total Bilirubin 0.80 (0.2-1.3) mg/dL AST 16 L (17-59) U/L ALT 13 (0-50) U/L Alkaline Phosphatase 155 H (38-126) U/L Serum Total Protein 7.9 (6.3-8.2) g/dL Albumin 3.8 (3.5-5.0) g/dL Lipase 253 (23-300) U/L Urinalys Dipstick Clnc MAIN LAB Urine Color YELLOW (YELLOW) Urine Appearance SLIGHTLY CLOUDY A (CLEAR) Urine pH 6.0 (5-6) Ur Specific Russell 1.025 (1.005-1.025) POC Urine Protein Conf 30 A (Negative) Urine Ketones NEGATIVE (NEGATIVE) Urine Nitrite POSITIVE A (NEGATIVE) Urine Bilirubin NEGATIVE (NEGATIVE) Urine Urobilinogen 0.2 (0-1) mg/dL Urine Leukocytes SMALL A (NEGATIVE) Urine WBC (Auto) >100 A (0-5) /HPF Urine RBC (Auto) 16-25 A (0-2) /HPF U Epithel Cells (Auto) NONE (FEW) /HPF Urine Bacteria (Auto) NONE (NEGATIVE) /HPF Urine RBC SMALL A (0-5) Nate/ul Urine Mucus (Auto) SLIGHT A (NEGATIVE) /HPF Ur Culture Indicated? YES Urine Glucose >=1000 A (NEGATIVE) mg/dL 01/15/22 Range/Units 19:40 WBC 9.9 (4.0-10.5) x10^3/uL RBC 4.96 (4.1-5.6) x10^6/uL Hgb 14.2 (12.5-18.0) g/dL Hct 42.6 (42-50) % MCV 85.9 (78-100) fL MCH 28.6 (26-32) pg MCHC 33.3 (32-36) g/dL RDW 13.0 (11.5-14.0) % Plt Count 275 (150-450) x10^3/uL MPV 10.9 (7.5-11.0) fL Gran % 67.3 H (36.0-66.0) % Immature Gran % (Auto) 0.3 (0.00-0.4) % Nucleat RBC Rel Count 0.0 (0.00-0.1) % Eos # (Auto) 0.18 (0-0.5) x10^3/uL Immature Gran # (Auto) 0.03 (0.00-0.03) x10^3u/L Absolute Lymphs (auto) 2.18 (1.0-4.6) x10^3/uL Absolute Monos (auto) 0.78 (0.0-1.3) x10^3/uL Absolute Nucleated RBC 0.00 (0.00-0.01) x10^3u/L Lymphocytes % 22.1 L (24.0-44.0) % Monocytes % 7.9 (0.0-12.0) % Eosinophils % 1.8 (0.00-5.0) % Basophils % 0.6 (0.0-0.4) % Absolute Granulocytes 6.63 (1.4-6.9) x10^3/uL Basophils # 0.06 (0-0.4) x10^3/uL Sodium (137-145) mmol/L Potassium (3.5-5.1) mmol/L Chloride (98-107) mmol/L Carbon Dioxide (22-30) mmol/L Anion Gap (5-15) MEQ/L BUN (9-20) mg/dL Creatinine (0.66-1.25) mg/dL Estimated GFR ML/MIN Glucose (74-106) mg/dL Lactic Acid (0.4-2.0) Calcium (8.4-10.2) mg/dL Total Bilirubin (0.2-1.3) mg/dL AST (17-59) U/L ALT (0-50) U/L Alkaline Phosphatase (38-126) U/L Serum Total Protein (6.3-8.2) g/dL Albumin (3.5-5.0) g/dL Lipase (23-300) U/L Urinalys Dipstick Clnc Urine Color (YELLOW) Urine Appearance (CLEAR) Urine pH (5-6) Ur Specific Russell (1.005-1.025) POC Urine Protein Conf (Negative) Urine Ketones (NEGATIVE) Urine Nitrite (NEGATIVE) Urine Bilirubin (NEGATIVE) Urine Urobilinogen (0-1) mg/dL Urine Leukocytes (NEGATIVE) Urine WBC (Auto) (0-5) /HPF Urine RBC (Auto) (0-2) /HPF U Epithel Cells (Auto) (FEW) /HPF Urine Bacteria (Auto) (NEGATIVE) /HPF Urine RBC (0-5) Naet/ul Urine Mucus (Auto) (NEGATIVE) /HPF Ur Culture Indicated? Urine Glucose (NEGATIVE) mg/dL - Progress Progress: improved Progress Note: 01/15/22 21:37 Is given fluids and symptomatic treatment for pain, on reevaluation pain is almost completely resolved. Has negative neuro exam in lower extremities. Normal white count, grossly unremarkable chemistries. Does have UTI and given a dose of Rocephin. Obtained CT abdomen pelvis without contrast which showed pancreatic duct stone which is unchanged from previous and no other acute findings. I believe patient has a combination of UTI and back strain, recommended continue with antibiotics and pain medication which she has at home. Outpatient follow-up recommended. Discussed signs symptoms of worsening needing return to ER which he seems understanding. Stable for discharge. Counseled pt/family regarding: lab results, diagnosis, need for follow-up, rad results - Departure Departure Disposition: Home Clinical Impression: Acute UTI, Low back strain Condition: Stable Critical Care Time: No Referrals: JAMIE GUO MD [Primary Care Provider] - Follow up/PCP as directed (In 2 days for reevaluation) Instructions: Urinary Tract Infection, Adult (DC), Back Muscle Strain (DC) Additional Instructions: Take pain medications which you have at home as recommended. Follow-up with primary care for reevaluation. Return to ER for worsening low back pain, flank pain, fever chills, intractable nausea vomiting etc. do not take Levaquin while being on cefpodoxime. Prescriptions: Cyclobenzaprine HCl 10 mg [Flexeril 10 MG] 10 mg PO TID #20 tablet Cefpodoxime Proxetil 200 mg [Vantin 200 mg] 200 mg PO BID 7 Days #14 tablet
[2022-01-15 20:30] LABS: Appearance SLIGHTLY CLOUDY (CLEAR); Bilirubin NEGATIVE (NEGATIVE); Dipstick done @ ? MAIN LAB; Glucose >=1000 mg/dL (NEGATIVE); Ketones NEGATIVE (NEGATIVE); Nitrite POSITIVE (NEGATIVE); Protein,Urine Dip 30 (Negative); RBC SMALL Ery/ul (0-5); Specific Gravity 1.025 (1.005-1.025); Urobilinogen 0.2 mg/dL (0-1)
[2022-01-15 20:35] LABS: Mucus SLIGHT /HPF (NEGATIVE); WBC >100 /HPF (0-5)
[2022-01-15 20:38] LABS: Urine Cultured Indicated? YES
[2022-01-15] MEDS ORDERED: ROCEPHIN 2 Gm-D5w 50ML BAG** 2 G/50 ML IVPB IV STA (20:41)
[2022-01-15] MEDS ORDERED: ROCEPHIN 2 Gm-D5w 50ML BAG** 2 G/50 ML IVPB IV ONE (20:43)
[2022-01-15 21:03] VITALS: PULSE 82
[2022-01-15 21:42] VITALS: O2SAT 98
[2022-01-15 21:43] VITALS: BP 109/68
--- NOTE | 2022-01-16 07:59 | XRAY ---
Indication: Left flank and back pain. Multiple contiguous axial images obtained through the abdomen and pelvis without contrast. Comparison: July 10, 2021 Lung bases again demonstrates pulmonary emphysema and left lower lobe calcified granuloma. No infiltrate or effusion. Heart not enlarged. Noncontrasted stomach and bowel loops nonobstructed. Appendix not visualized. There remains mild diffuse scattered colonic fecal debris throughout. No free fluid/air. Stable pancreatic head calculus/calcification, cholecystectomy, nonobstructing right renal micro-calculus, and a suprapubic catheter. Remaining liver, pancreas, spleen, adrenal glands, kidneys, ureters, and bladder are unremarkable for noncontrast exam. Again moderate scattered aortoiliac calcifications with aortobifemoral and femoral-femoral bypass grafts. Lack of IV contrast again precludes further characterization. Osseous structures intact again with osteopenia and degenerative changes throughout the spine. Impression: 1. Mild diffuse fecal stasis. 2. Stable pulmonary emphysema, pancreatic head calculus/calcification, nonobstructing right renal micro-calculus, suprapubic catheter in situ, arteriosclerotic disease with bypass grafts, chronic bony findings, and old granulomatous disease. 3. No acute intra-abdominal/pelvic abnormalities on this noncontrast exam. Comment: Preliminary interpretation made by [facility]. No critical discrepancy.
== END 2022-01-15 22:00 | disposition home or self-care (01) ==
LOC: ED 18:26
DX: N39.0 Urinary tract infection, site not specified (principal); S39.012A Strain of muscle, fascia and tendon of lower back, initial encounter; R10.9 Unspecified abdominal pain; I10 Essential (primary) hypertension; E78.5 Hyperlipidemia, unspecified; E11.9 Type 2 diabetes mellitus without complications; Z72.0 Tobacco use; Z79.02 Long term (current) use of antithrombotics/antiplatelets; Z79.891 Long term (current) use of opiate analgesic; Z79.899 Other long term (current) drug therapy
CPT/HCPCS: 36000; 36415; 74176; 80053; 81015; 83605; 83690; 85025; 87086; 96365; 96374; 96375; 99284; J0696; J1642; J2270; J2405

== ENCOUNTER → 2022-03-10 | Emergency (ER) | payer MEDICARE, OTHER | END | disposition left against medical advice (07) | LOC: ED 15:10 | DX: Z53.21 Procedure and treatment not carried out due to patient leaving prior to being seen by health care provider (principal) ==

== ENCOUNTER 2022-09-11 19:44 | Observation (INO) | payer MEDICARE, OTHER ==
[2022-09-11] MEDS ORDERED: Zofran 4 MG/2 ML VIAL IV ONE (20:12)
[2022-09-11] MEDS ORDERED: Sodium Chloride 0.9% 1000 ML 1,000 ML IV STA (20:12)
[2022-09-11] MEDS ORDERED: Zofran 4 MG/2 ML VIAL ONE (20:17)
[2022-09-11] MEDS ORDERED: Sodium Chloride 0.9% 1000 ML 1,000 ML ONE ×2 (20:17→22:50)
[2022-09-11 20:31] LABS: Appearance Clear (Clear); Bacteria Rare /HPF (None Seen); Bilirubin Negative (Negative); Blood NHT (Negative); Epithelial Cells Rare /HPF (None Seen); Glucose, Urine 250 mg/dL (Negative); Hyaline Casts NONE SEEN /LPF (0-2); Ketones Negative (Negative); Leukocyte Esterase Small (Negative); Nitrite Negative (Negative); Ph 6.5 (4.6-8.0); Protein,Urine Dip 30 (Negative); Specific Gravity 1.015 (1.005-1.030)
[2022-09-11 20:32] LABS: ADD URINE CULTURE? YES (NO)
[2022-09-11] MEDS ORDERED: MORPHINE SULFATE 4 MG INJ IV ONE (20:38)
[2022-09-11 20:43] LABS: Absolute Neutrophil Ct (ANC) 11.65 x10^3/uL (1.4-6.9); BASOPHIL % 0.4 % (0.0-0.4); Basophil (Absolute #) 0.06 x10^3/uL (0-0.4); Eosinophil % 1.1 % (0.00-5.0); Eosinophil (Absolute #) 0.16 x10^3/uL (0-0.5); Hematocrit 45.4 % (42-50); Hemoglobin 14.8 g/dL (12.5-18.0); IMMATURE GRAN # 0.06 x10^3u/L (0.00-0.03); IMMATURE GRAN % 0.4 % (0.00-0.4); Lymphocyte (Absolute #) 2.21 x10^3/uL (1.0-4.6); Lymphocytes % 14.7 % (24.0-44.0); Mean Cell Volume 86.8 fL (78-100); Mean Corpuscular Hemoglobin 28.3 pg (26-32); Mean Corpuscular Hgb Concent. 32.6 g/dL (32-36); Mean Platelet Volume 10.7 fL (7.5-11.0); Monocyte (Absolute #) 0.89 x10^3/uL (0.0-1.3); Monocytes % 5.9 % (0.0-12.0); Neutrophil % 77.5 % (36.0-66.0); Platelet Count 195 x10^3/uL (150-450); Red Blood Count 5.23 x10^6/uL (4.1-5.6); Red Cell Distribution Width 13.4 % (11.5-14.0)
--- NOTE | 2022-09-11 20:43 | ERPHSYRPT ---
- History of Present Illness Time Seen by Provider: 09/11/22 19:48 Historian: patient Exam Limitations: no limitations Patient Subjective Stated Complaint: pt states he has a history of kidney stones with stone removal and frequent UTI's as well as chronic pancreatitis that has gotten infected requiring >1wk stay in ICU. c/o bilat lower abdominal pain that started on 09/08/22, is constant, described as achy, and rated 8/10 scale. pain radiates to bilat flanks and also reports nausea but no vomiting. denies difficulty with bowel elimination with last BM on 09/09/22 and normal for him. reports frequency, urgency, hesitation, and dribbling urination. reports sl ight burning while urinating. denies sob, cp, difficulty breathing, fever, cough, chills, or other ill feelings. Triage Nursing Assessment: pt ambulated independently to obtain weight on scale, to restroom for urine sample, and to room 5. gait is slow and steady with slight limp which pt reports is due to past strokes. pt is alert and oriented times three, able to speak in complete sentences, able to move all extremities, and with resp even and unlabored. abd soft, nondistended, tender to touch with bowel sounds hyperactive in all 4 quads. skin warm, dry, and intact. Physician History: 66 years old male with multiple active problems including multiple strokes with right-sided residual weakness, neurogenic bladder with suprapubic catheter in past , issues with gait, coronary artery disease with stenting, peripheral vascular disease with bypasses, diabetes mellitus, hypertension, heavy tobacco use, chronic pancreatitis presented to the ER with chief complaint of lower abdominal pain for the last 3 days with progressive worsening. Reports associated nausea and dry heaving but no vomiting. Reports pain radiating to both flanks. Patient also reports having increased urinary frequency, sense of incomplete voiding and dribbling of urine. Reports having similar symptoms last time with UTI. Patient does have choledocholithiasis and was not [facility] for a week last year. Timing/Duration: day(s) (3), constant, gradual onset, worse Activities at Onset: rest Quality: cramping, sharpness Abdominal Pain Onset Location: RLQ, LLQ, flank Pain Radiation: flank, back Severity of Pain-Max: severe Severity of Pain-Current: moderate Modifying Factors: Worsens With: movement, palpation Associated Symptoms: nausea Previous symptoms: same symptoms as today Allergies/Adverse Reactions: codeine Adverse Reaction (Intermediate, Verified 09/12/22 00:44) Vomiting Home Medications: Clopidogrel Bisulfate [PLAVIX Tablet] 75 mg PO UD 09/22/12 [History] Rosuvastatin Calcium [Crestor] 10 mg PO DAILY 02/28/13 [History] Escitalopram Oxalate [Lexapro] 10 mg PO DAILY 01/09/21 [History] Glimepiride 2 mg [Amaryl 2 MG] 2 mg PO DAILY 09/12/22 [History] Ibuprofen [Ibu] 600 mg PO TIDPRN 09/12/22 [History] Hx Tetanus, Diphtheria Vaccination/Date Given: Yes Hx Influenza Vaccination/Date Given: No Hx Pneumococcal Vaccination/Date Given: Yes Immunizations Up to Date: Yes Travel Risk - International Travel Have you traveled outside of the country in past 3 weeks: No - Coronavirus Screening Are you exhibiting any of the following symptoms?: No Close contact with a COVID-19 positive Pt in past 14-21 Days: No - Vaccine Status Have you recieved a Covid-19 vaccination: Yes Casting Tester: Moderna - Vaccination Dates Date of 2cond Vaccination (if applicable): 2020 - Review of Systems Constitutional: Fatigue, Weakness Eyes: No Symptoms Ears, Nose, & Throat: No Symptoms Respiratory: Cough Cardiac: No Symptoms Abdominal/Gastrointestinal: Abdominal Pain, Nausea Genitourinary Symptoms: Frequency, Hesitancy, Flank Pain Musculoskeletal: Arthralgias, Back Pain, Neck Pain Skin: No Symptoms Neurological: Focal Weakness Hematologic/Lymphatic: No Symptoms Immunological/Allergic: No Symptoms - Past Medical History Pertinent Past Medical History: Yes Neurological History: Stroke ENT History: Other Cardiac History: Coronary Artery Disease, High Cholesterol, Peripheral Vascular Disease Respiratory History: COPD Endocrine Medical History: Diabetes Type II Musculoskeletal History: Degenerative Disk Disease, Osteoarthritis GI Medical History: GERD, Pancreatitis History: Other Psycho-Social History: Depression Male Reproductive Disorders: No Pertinent History Other Medical History: SX HX: CERVICAL FUSION, VASCULAR SURGERY NOTED, PLACEMENT OF SUPRAPUBIC CATHETER FOR NEUROGENIC BLADDER, CAROTID ENDARTERECTOMY DOROTEO, AORTA/BIFEM BYPASS, FEM-FEM BYPASS, CHOLECYSTECTOMY. OTHER HX: GERD, DEPRESSION, HX OF BLOOD CLOTS, BLADDER BLEEDING AND UTIS - Past Surgical History Past Surgical History: Yes Neuro Surgical History: No Pertinent History Cardiac: Vascular Surgery, Angioplasty Respiratory: No Pertinent History Gastrointestinal: Cholecystectomy Genitourinary: Other Musculoskeletal: Orthopedic Surgery Male Surgical History: No Pertinent History Other Surgical History: FEM-FEM BYPASS - BRACHIAL STENTS - DOROTEO CAROTID ENDARTERECTOM PER ESPER THIS YEAR - CERVICAL FUSION - CYSTOSCOPY WITH LARGE CLOT REMOVED FROM BLADDER. AORTA BYFEMEROL BYPASS - Social History Smoking Status: Current every day smoker How long have you smoked: 13 y o Exposure to second hand smoke: Yes Drug Use: none Patient Lives Alone: No - Nursing Vital Signs Nursing Vital Signs: Initial Vital Signs Pulse Rate 91 H 09/11/22 20:00 Respiratory Rate 20 09/11/22 20:00 Blood Pressure 132/75 09/11/22 20:00 O2 Sat by Pulse Oximetry 100 09/11/22 20:00 Pain Scale Pain Intensity 5 - Physical Exam General Appearance: no apparent distress, alert Eye Exam: PERRL/EOMI Ears, Nose, Throat Exam: normal ENT inspection, TMs normal, pharynx normal Neck Exam: normal inspection, non-tender, supple, full range of motion Respiratory Exam: normal breath sounds, lungs clear Cardiovascular Exam: regular rate/rhythm, normal heart sounds Gastrointestinal/Abdomen Exam: soft, normal bowel sounds, tenderness (Generalized but more in the lower abdomen with no guarding or rebound tenderness.) Back Exam: normal inspection, CVA tenderness (Bilateral) Extremity Exam: normal inspection, normal range of motion Neurologic Exam: alert, oriented x 3, cooperative Skin Exam: normal color SpO2 Interpretation: normal SpO2: 99 O2 Delivery: Room Air Ordered Tests: Medication Summary Discontinued Medications Generic Name Dose Route Start Last Admin Trade Name Freq PRN Reason Stop Dose Admin Clopidogrel Bisulfate 75 mg 09/15/22 10:00 Clopidogrel Bisulfate 75 Mg Tablet PO 10/15/22 09:59 SuTh JOHN Escitalopram Oxalate 10 mg 09/12/22 18:00 09/14/22 09:51 Escitalopram Oxalate 10 Mg Tablet PO 10/12/22 17:59 10 mg DAILY JOHN Administration Heparin Sodium (Beef Lung) 500 units 09/11/22 20:50 09/11/22 22:00 Heparin Lock Flush Pf 500 Units/5 Ml Syringe PORT FLUSH 10/11/22 20:49 500 units PRN PRN Administration IV PORT FLUSH Hydromorphone HCl 1 mg 09/11/22 22:49 09/12/22 09:04 Hydromorphone 1 Mg/1ml Inj IV 09/11/22 22:50 0.4 mg STAT ONE Administration Hydromorphone HCl Confirm 09/11/22 22:50 Hydromorphone 1 Mg/1ml Inj Administered 09/11/22 22:51 Dose 1 mg .ROUTE .STK-MED ONE Hydromorphone HCl 0.5 mg 09/12/22 01:31 09/12/22 02:39 Hydromorphone 1 Mg/1ml Inj IV 09/17/22 01:30 0.5 mg Q4H PRN PRN Administration PAIN Hydromorphone HCl Confirm 09/12/22 02:37 Hydromorphone 1 Mg/1ml Inj Administered 09/12/22 02:38 Dose 1 mg .ROUTE .STK-MED ONE Hydromorphone HCl 1 mg 09/12/22 03:30 Hydromorphone 1 Mg/1ml Inj IV 09/17/22 01:30 Q4H PRN PRN PAIN Hydromorphone HCl 0.5 mg 09/12/22 03:31 09/12/22 03:38 Hydromorphone 1 Mg/1ml Inj IV 09/12/22 03:32 0.5 mg STAT ONE Administration Hydromorphone HCl 1 mg 09/12/22 06:46 09/12/22 06:51 Hydromorphone 1 Mg/1ml Inj IV 09/17/22 06:45 1 mg Q3H PRN PRN Administration PAIN Hydromorphone/Sodium Chloride 30 mg 09/12/22 08:37 09/12/22 08:42 Hydromorphone/Nacl/Pf 30 Mg/30 Ml Cigarette Inspector.Syring IV 10/12/22 08:36 30 mg .STANDARD DESIZING MACHINE OFFBEARER DOSING PRN Administration PAIN Sodium Chloride 1,000 mls @ 999 mls/hr 09/11/22 20:12 09/11/22 22:18 Sodium Chloride 0.9% 1000 Ml IV 09/11/22 21:12 Infused .Q1H1M STA Infusion Sodium Chloride Confirm 09/11/22 20:17 Sodium Chloride 0.9% 1000 Ml Administered 09/11/22 20:18 Dose 1,000 mls @ ud .ROUTE .STK-MED ONE Ceftriaxone Sodium/Dextrose 2 g in 50 mls @ 100 mls/hr 09/11/22 22:32 09/12/22 00:28 Rocephin 2 Gm-D5w 50ml Bag IV 09/11/22 23:01 Infused STAT STA Infusion Ceftriaxone Sodium/Dextrose Confirm 09/11/22 22:42 Rocephin 2 Gm-D5w 50ml Bag Administered 09/11/22 22:43 Dose 2 g in 50 mls @ ud IV .STK-MED ONE Sodium Chloride Confirm 09/11/22 22:50 Sodium Chloride 0.9% 1000 Ml Administered 09/11/22 22:51 Dose 1,000 mls @ ud .ROUTE .STK-MED ONE Sodium Chloride 1,000 mls @ 125 mls/hr 09/11/22 23:00 09/14/22 13:22 Sodium Chloride 0.9% 1000 Ml IV 10/11/22 22:59 125 mls/hr .Q8H JOHN Administration Ceftriaxone Sodium/Dextrose 2 g in 50 mls @ 100 mls/hr 09/12/22 22:00 09/12/22 21:12 Rocephin 2 Gm-D5w 50ml Bag IV 09/15/22 21:59 100 mls/hr HS JOHN Administration Insulin Human Lispro 0 unit 09/12/22 00:34 09/12/22 21:09 Insulin Lispro 1 Unit SQ 10/12/22 00:33 2 unit UD PRN Administration HYPERGLYCEMIA Morphine Sulfate 4 mg 09/11/22 20:38 09/11/22 20:45 Morphine Sulfate 4 Mg/Ml Injection IV 09/11/22 20:39 4 mg STAT ONE Administration Morphine Sulfate Confirm 09/11/22 20:44 Morphine Sulfate 4 Mg/Ml Injection Administered 09/11/22 20:45 Dose 4 mg .ROUTE .STK-MED ONE Morphine Sulfate 4 mg 09/12/22 00:34 Morphine Sulfate 4 Mg/Ml Injection IV 09/17/22 00:33 Q4H PRN PRN PAIN Nicotine 21 mg 09/12/22 01:45 09/13/22 20:58 Nicotine 21 Mg/Patch Patch TOP 10/12/22 01:44 21 mg Q24H JOHN Administration Ondansetron HCl 4 mg 09/11/22 20:12 09/11/22 20:24 Ondansetron Hcl 4 Mg/2 Ml Vial IV 09/11/22 20:13 4 mg STAT ONE Administration Ondansetron HCl Confirm 09/11/22 20:17 Ondansetron Hcl 4 Mg/2 Ml Vial Administered 09/11/22 20:18 Dose 4 mg .ROUTE .STK-MED ONE Ondansetron HCl 4 mg 09/12/22 00:34 Ondansetron Hcl 4 Mg/2 Ml Vial IV 10/12/22 00:33 Q6H PRN PRN NAUSEA/VOMITING Pantoprazole Sodium 40 mg 09/12/22 10:00 09/13/22 10:49 Pantoprazole 40 Mg Vial IV 10/12/22 09:59 Not Given Q24H10 JOHN Polyethylene Glycol 17 gm 09/12/22 10:00 09/14/22 09:55 Polyethylene Glycol 3350 17 Gm Packet PO 10/12/22 09:59 Not Given DAILY JOHN Potassium Chloride 40 meq 09/14/22 07:28 09/14/22 07:42 Potassium Chloride Tab 10 Meq Tab PO 09/14/22 07:29 40 meq STAT ONE Administration Simvastatin 20 mg 09/12/22 18:00 09/14/22 09:51 Simvastatin 20 Mg Tablet PO 10/12/22 17:59 20 mg DAILY JOHN Administration Lab/Rad Data: Laboratory Result Diagrams 09/11/22 20:41 09/11/22 20:41 Laboratory Results 09/11/22 09/11/22 09/11/22 Range/Units 20:41 20:41 20:10 WBC 15.0 H (4.0-10.5) x10^3/uL RBC 5.23 (4.1-5.6) x10^6/uL Hgb 14.8 (12.5-18.0) g/dL Hct 45.4 (42-50) % MCV 86.8 (78-100) fL MCH 28.3 (26-32) pg MCHC 32.6 (32-36) g/dL RDW 13.4 (11.5-14.0) % Plt Count 195 (150-450) x10^3/uL MPV 10.7 (7.5-11.0) fL Gran % 77.5 H (36.0-66.0) % Immature Gran % (Auto) 0.4 (0.00-0.4) % Nucleat RBC Rel Count 0.0 (0.00-0.1) % Eos # (Auto) 0.16 (0-0.5) x10^3/uL Immature Gran # (Auto) 0.06 H (0.00-0.03) x10^3u/L Absolute Lymphs (auto) 2.21 (1.0-4.6) x10^3/uL Absolute Monos (auto) 0.89 (0.0-1.3) x10^3/uL Absolute Nucleated RBC 0.00 (0.00-0.01) x10^3u/L Lymphocytes % 14.7 L (24.0-44.0) % Monocytes % 5.9 (0.0-12.0) % Eosinophils % 1.1 (0.00-5.0) % Basophils % 0.4 (0.0-0.4) % Absolute Granulocytes 11.65 H (1.4-6.9) x10^3/uL Basophils # 0.06 (0-0.4) x10^3/uL Sodium 134 L (137-145) mmol/L Potassium 3.6 (3.5-5.1) mmol/L Chloride 98 (98-107) mmol/L Carbon Dioxide 26 (22-30) mmol/L Anion Gap 13.2 (5-15) MEQ/L BUN 10 (9-20) mg/dL Creatinine 0.59 L (0.66-1.25) mg/dL Estimated GFR > 60.0 ML/MIN Glucose 210 H (74-106) mg/dL Calcium 8.7 (8.4-10.2) mg/dL Total Bilirubin 1.10 (0.2-1.3) mg/dL AST 22 (17-59) U/L ALT 15 (0-50) U/L Alkaline Phosphatase 142 H (38-126) U/L Serum Total Protein 7.8 (6.3-8.2) g/dL Albumin 4.0 (3.5-5.0) g/dL Lipase 265 (23-300) U/L Urine Color Yellow (Yellow) Urine Appearance Clear (Clear) Urine pH 6.5 (4.6-8.0) Ur Specific [place] 1.015 (1.005-1.030) Urine Protein 30 (Negative) Urine Glucose (UA) 250 A (Negative) mg/dL Urine Ketones Negative (Negative) Urine Blood NHT (Negative) Urine Nitrite Negative (Negative) Urine Bilirubin Negative (Negative) Urine Urobilinogen 1.0 A (0.2) mg/dL Ur Leukocyte Esterase Small A (Negative) U Hyaline Cast (Auto) NONE SEEN (0-2) /LPF Urine Microscopic RBC 6-10 A (0-5) /HPF Urine Microscopic WBC 11-20 A (0-5) /HPF Ur Epithelial Cells Rare (None Seen) /HPF Calcium Oxalate Crystal 11-25 A (None Seen) /HPF Urine Bacteria Rare A (None Seen) /HPF Urine Culture Reflexed YES (NO) - Progress Progress: improved, pain not gone completely, re-examined Progress Note: 09/11/22 20:43 66 years old male with multiple active problems including multiple strokes with right-sided residual weakness, issues with gait, coronary artery disease with stenting, peripheral vascular disease with bypasses, diabetes mellitus, hypertension, heavy tobacco use, chronic pancreatitis presented to the ER with chief complaint of lower abdominal pain for the last 3 days with progressive worsening. Reports associated nausea and dry heaving but no vomiting. Reports pain radiating to both flanks. Patient also reports having increased urinary frequency, sense of incomplete voiding and dribbling of urine. Reports having similar symptoms last time with UTI. Patient does have choledocholithiasis and was not [facility] for a week last year. Patient is given symptomatic treatment along with fluids and will do acute abdomen work-up including CT abdomen pelvis with contrast. 09/12/22 00:14 Is given multiple doses of pain medications and pain is better controlled but not completely resolved. Work-up showed white count of 15, fairly unremarkable chemistries, normal liver enzymes and total bilirubin. Does have UTI and given a dose of Rocephin. Obtained CT abdomen pelvis which showed acute on chronic pancreatitis with no other acute findings. I have discussed the results of work-up with patient and family and observation admission and they agree with it. I have discussed with Dr. Escobar, reviewed history, work-up and agreed with conservative management with n.p.o., IV fluids and pain control. We will co ntinue with Rocephin for UTI. Discussed with Dr.: Other (Dr. Escobar hospitalist) Counseled pt/family regarding: lab results, diagnosis, need for follow-up, rad results Medical Desision Making - Discussion of managment Care discussed with:: hospitalist (Shawn at 0012) Reviewed:: Test results Agreed on:: Treatment plan, place in obs Will see patient: in hospital - Diagnostic Testing Diagnostic test were ordered, analyzed, and reviewed by me: Yes Radiological Interpretation: Reviewed by me, Discussed w/ radiologist, Teleradiologist Report - Risk of complications The pt has a high risk of morbidity or mortality based on: Decision regarding hospitilization or escalation of hosp level of care - Departure Clinical Impression: Acute on chronic pancreatitis, Acute UTI Condition: Stable Critical Care Time: No
[2022-09-11] MEDS ORDERED: MORPHINE SULFATE 4 MG INJ ONE (20:44)
[2022-09-11 20:58] LABS: ALKALINE PHOSPHATASE 142 U/L (38-126); ANION GAP 13.2 MEQ/L (5-15); BLOOD UREA NITROGEN 10 mg/dL (9-20); CHLORIDE 98 mmol/L (98-107); Calcium 8.7 mg/dL (8.4-10.2); Carbon Dioxide 26 mmol/L (22-30); Creatinine 1 0.59 mg/dL (0.66-1.25); EST GLOMERULAR FILTRATION RATE > 60.0 ML/MIN; Glucose 210 mg/dL (74-106); LIPASE 265 U/L (23-300); Potassium 3.6 mmol/L (3.5-5.1); SGOT/AST 22 U/L (17-59); SGPT/ALT 15 U/L (0-50); SODIUM 134 mmol/L (137-145); Total Protein 7.8 g/dL (6.3-8.2)
[2022-09-11] MEDS ORDERED: ROCEPHIN 2 Gm-D5w 50ML BAG** 2 G/50 ML IVPB IV STA (22:32)
--- NOTE | 2022-09-11 22:32 | XRAY ---
CLINICAL HISTORY:gen abd pain COMPARISON:01/15/2022. TECHNIQUE:CT scan of the abdomen and pelvis was performed with IV contrast. Coronal and sagittal reconstructive images were also obtained. FINDINGS: Abdomen: The head and uncinate process of pancreas appear bulky with surrounding fat stranding in the mesentery. No surrounding fluid collection was noted. Punctate calcific foci are seen in the head and body of the pancreas. The main pancreatic duct is also mildly dilated, measuring 5.5 mm. There is mild dilatation of intrahepatic biliary radicles and common bile duct. Common bile duct measures 8 mm in maximum caliber. The gallbladder is surgically removed. The liver is prominent in size, measuring 15.6 cm. No focal or diffuse parenchymal abnormality. The portal vein appears normal. The spleen and adrenal glands are unremarkable. The kidneys are unremarkable. They are normal in size and shape. No calculi or hydronephrosis. The ascending colon, the transverse colon, and the descending colon visualized small bowel loops are unremarkable. There is no evidence of significant enlargement of the mesenteric or retroperitoneal lymph nodes. The abdominal aorta and its branches show atherosclerotic changes with calcified dots with circumferential intimal calcification of right common and external iliac arteries causing nearly 40% luminal narrowing. Pelvis: The urinary bladder is unremarkable. The rectosigmoid colon is unremarkable. The prostate shows mild dilatation of the prostatic urethra. No evidence of pelvic lymphadenopathy. The lumbar spine shows degenerative changes. Sections of lower lung shows a calcified 6 mm nodule in the posterobasal segment of left lower lobe. IMPRESSION: 1. The above findings suggest the possibility of acute on chronic pancreatitis. Clinical and lab correlation is advised. 2. Mild dilatation of common bile duct and intrahepatic biliary radicals could be secondary to cholecystectomy but the possibility of inflammatory stricture should also be considered. 3. In comparison to the previous study dated 01/16/2022, there is redemonstration of chronic calcific pancreatitis, with new interval development of bulky head and uncinate process of pancreas and surrounding fat stranding with mild dilatation of CBD and intrahepatic biliary radicals. The [facility] ER was called at [phone] at 09:20 PM CHILD CARE LEAD TEACHER, 09/11/2022 and significant medical findings were verbally communicated to Dr Bearden Electronically Signed by: Fer Cueto MD. (09/11/2022 21:31:12 CHILD CARE LEAD TEACHER)
[2022-09-11] MEDS ORDERED: ROCEPHIN 2 Gm-D5w 50ML BAG** 2 G/50 ML IVPB IV ONE (22:42)
[2022-09-11] MEDS ORDERED: Hydromorphone 1 mg/ml Injection ONE (22:50)
[2022-09-11] MEDS: Hydromorphone 1 mg/ml Injection IV ONE (22:51)
[2022-09-11] MEDS: Sodium Chloride 0.9% 1000 ML 1,000 ML IV SCH (22:55)
[2022-09-12] MEDS ORDERED: Zofran 4 MG/2 ML VIAL IV PRN (00:34)
[2022-09-12] MEDS ORDERED: MORPHINE SULFATE 4 MG INJ IV PRN (00:34)
[2022-09-12] MEDS ORDERED: HUMALOG SQ PRN (00:34)
--- NOTE | 2022-09-12 00:54 | PCM.HP ---
History of Present Illness - Chief Complaint Chief Complaint: Acute on chronic pancreatitis History of Present Illness: is a 66 year old male with history of chronic pancreatitis, renal stones who presents with 3 days of acute abdominal pain, with CT abdomen showing acute on chronic pancreatitis. Patient denies fevers, vomiting but endorses nausea, abdominal tenderness and some dysuria. No hematuria. - Review of Systems Eyes: No Symptoms Ears, Nose, & Throat: No Symptoms Respiratory: No Cough, No Short Of Breath Cardiac: No Chest Pain, No Edema, No Syncope Abdominal/Gastrointestinal: Abdominal Pain, Nausea Genitourinary Symptoms: No Dysuria Musculoskeletal: No Back Pain, No Neck Pain Skin: No Rash Neurological: No Dizziness, No Focal Weakness, No Sensory Changes Psychological: No Symptoms Endocrine: No Symptoms Hematologic/Lymphatic: No Symptoms Immunological/Allergic: No Symptoms Medications & Allergies Home Medications: Home Medication List Clopidogrel Bisulfate [PLAVIX Tablet] 75 mg PO UD 09/22/12 [History Confirmed 01/15/22] Rosuvastatin Calcium [Crestor] 10 mg PO DAILY 02/28/13 [History Confirmed 01/15/22] Escitalopram Oxalate [Lexapro] 10 mg PO DAILY 01/09/21 [History Confirmed 01/15/22] Ibuprofen [Ibu] 600 mg PO TID 10 Days #30 tablet 01/12/21 [Rx Confirmed 01/15/22] Hydrocodone/APAP 5/325 [[place] 5/325 mg] 1 each PO Q8H PRN PRN #6 tablet MDD 3 06/15/21 [Rx Confirmed 01/15/22] Cefpodoxime Proxetil 200 mg [Vantin 200 mg] 200 mg PO BID 7 Days #14 tablet 01/15/22 [Rx] Cyclobenzaprine HCl 10 mg [Flexeril 10 MG] 10 mg PO TID #20 tablet 01/15/22 [Rx] Levofloxacin [Levaquin 500 MG Tablet] 250 mg PO DAILY 01/15/22 [History Confirmed 01/15/22] Allergies/Adverse Reactions: Allergies Allergy/AdvReac Type Severity Reaction Status Date / Time codeine AdvReac Intermediate Vomiting Verified 09/12/22 00:44 - Past Medical History Past Medical History: Yes Neurological History: Stroke ENT History: Other Cardiac History: Coronary Artery Disease, High Cholesterol, Peripheral Vascular Disease Respiratory History: No Pertinent History, COPD Endocrine Medical History: Diabetes Type II Musculoskelatal History: Degenerative Disk Disease, Osteoarthritis GI Medical History: GERD, Pancreatitis History: Other Pyscho-Social History: Depression Male Reproductive Disorders: No Pertinent History Comment: SX HX: CERVICAL FUSION, VASCULAR SURGERY NOTED, PLACEMENT OF SUPRAPUBIC CATHETER FOR NEUROGENIC BLADDER, CAROTID ENDARTERECTOMY DOROTEO, AORTA/BIFEM BYPASS, FEM-FEM BYPASS, CHOLECYSTECTOMY. OTHER HX: GERD, DEPRESSI ON, HX OF BLOOD CLOTS, BLADDER BLEEDING AND UTIS - Past Surgical History Past Surgical History: Yes Neuro Surgical History: No Pertinent History Cardiac History: Vascular Surgery, Angioplasty Respiratory Surgery: No Pertinent History GI Surgical History: Cholecystectomy Genitourinary Surgical Hx: Other Musculskeletal Surgical Hx: Orthopedic Surgery Male Surgical History: No Pertinent History Other Surgical History: FEM-FEM BYPASS - BRACHIAL STENTS - DOROTEO CAROTID ENDARTERECTOM PER ROSEER THIS YEAR - CERVICAL FUSION - CYSTOSCOPY WITH LARGE CLOT REMOVED FROM BLADDER. AORTA BYFEMEROL BYPASS - Social History Smoking Status: Current every day smoker How long have you smoked: 13 y o Exposure to second hand smoke: Yes Alcohol: None Drug Use: none Significant Family History: no pertinent family hx - Physical Exam Vital Signs: Vital Signs - 24 hr Temp Pulse Resp BP BP Pulse Ox 09/12/22 00:21 99 09/12/22 00:00 81 20 97/53 98 09/11/22 23:30 82 16 99/52 96 09/11/22 23:00 85 16 120/68 96 09/11/22 22:30 94 H 16 137/82 97 09/11/22 22:00 87 16 155/89 99 09/11/22 21:59 99 09/11/22 21:50 99 09/11/22 21:40 100 09/11/22 21:35 99 09/11/22 21:00 90 16 143/78 100 09/11/22 20:30 89 16 140/88 99 09/11/22 20:01 98.9 F 99 H 16 149/78 99 09/11/22 20:00 91 H 20 132/75 100 General Appearance: no apparent distress Neurologic Exam: alert, oriented x 3, cooperative, normal mood/affect, nml cerebellar function, nml station & gait, sensation nml, No motor deficits Eye Exam: PERRL/EOMI, eyes nml inspection Ears, Nose, Throat Exam: normal ENT inspection, TMs normal, pharynx normal, moist mucous membranes Neck Exam: normal inspection, non-tender, supple, full range of motion Cardiovascular Exam: regular rate/rhythm, normal heart sounds, normal peripheral pulses Gastrointestinal/Abdomen Exam: normal bowel sounds, tenderness Back Exam: normal range of motion, No CVA tenderness, No vertebral tenderness Extremity Exam: normal inspection, normal range of motion, pelvis stable Skin Exam: normal color, warm, dry, No rash Lymphatic Exam: No adenopathy Results - Labs Lab/Micro Results: Lab Results-Last 24 Hours 09/11/22 09/11/22 09/11/22 Range/Units 20:10 20:41 20:41 WBC 15.0 H (4.0-10.5) x10^3/uL RBC 5.23 (4.1-5.6) x10^6/uL Hgb 14.8 (12.5-18.0) g/dL Hct 45.4 (42-50) % MCV 86.8 (78-100) fL MCH 28.3 (26-32) pg MCHC 32.6 (32-36) g/dL RDW 13.4 (11.5-14.0) % Plt Count 195 (150-450) x10^3/uL MPV 10.7 (7.5-11.0) fL Gran % 77.5 H (36.0-66.0) % Immature Gran % (Auto) 0.4 (0.00-0.4) % Nucleat RBC Rel Count 0.0 (0.00-0.1) % Eos # (Auto) 0.16 (0-0.5) x10^3/uL Immature Gran # (Auto) 0.06 H (0.00-0.03) x10^3u/L Absolute Lymphs (auto) 2.21 (1.0-4.6) x10^3/uL Absolute Monos (auto) 0.89 (0.0-1.3) x10^3/uL Absolute Nucleated RBC 0.00 (0.00-0.01) x10^3u/L Lymphocytes % 14.7 L (24.0-44.0) % Monocytes % 5.9 (0.0-12.0) % Eosinophils % 1.1 (0.00-5.0) % Basophils % 0.4 (0.0-0.4) % Absolute Granulocytes 11.65 H (1.4-6.9) x10^3/uL Basophils # 0.06 (0-0.4) x10^3/uL Sodium 134 L (137-145) mmol/L Potassium 3.6 (3.5-5.1) mmol/L Chloride 98 (98-107) mmol/L Carbon Dioxide 26 (22-30) mmol/L Anion Gap 13.2 (5-15) MEQ/L BUN 10 (9-20) mg/dL Creatinine 0.59 L (0.66-1.25) mg/dL Estimated GFR > 60.0 ML/MIN Glucose 210 H (74-106) mg/dL Calcium 8.7 (8.4-10.2) mg/dL Total Bilirubin 1.10 (0.2-1.3) mg/dL AST 22 (17-59) U/L ALT 15 (0-50) U/L Alkaline Phosphatase 142 H (38-126) U/L Serum Total Protein 7.8 (6.3-8.2) g/dL Albumin 4.0 (3.5-5.0) g/dL Lipase 265 (23-300) U/L Urine Color Yellow (Yellow) Urine Appearance Clear (Clear) Urine pH 6.5 (4.6-8.0) Ur Specific [place] 1.015 (1.005-1.030) Urine Protein 30 (Negative) Urine Glucose (UA) 250 A (Negative) mg/dL Urine Ketones Negative (Negative) Urine Blood NHT (Negative) Urine Nitrite Negative (Negative) Urine Bilirubin Negative (Negative) Urine Urobilinogen 1.0 A (0.2) mg/dL Ur Leukocyte Esterase Small A (Negative) U Hyaline Cast (Auto) NONE SEEN (0-2) /LPF Urine Microscopic RBC 6-10 A (0-5) /HPF Urine Microscopic WBC 11-20 A (0-5) /HPF Ur Epithelial Cells Rare (None Seen) /HPF Calcium Oxalate Crystal 11-25 A (None Seen) /HPF Urine Bacteria Rare A (None Seen) /HPF Urine Culture Reflexed YES (NO) - Radiology Impressions Radiology Exams & Impressions: Radiology Procedures Category Date Time Status ABDOMEN AND PELVIS W CONTRAST [CT] Stat Exams 09/11/22 20:38 Completed Assessment/Plan (1) Acute on chronic pancreatitis Current Visit: Yes Status: Acute Assessment & Plan: Continue Hydration at 125 cc/hr of NS Dilaudid 0.4 mg every 4 hours PRN NPO Zofran PRN Code(s): K85.90 - ACUTE PANCREATITIS WITHOUT NECROSIS OR INFECTION, UNSP; K86.1 - OTHER CHRONIC PANCREATITIS (2) Acute UTI Current Visit: Yes Status: Acute Assessment & Plan: Rocephin given in the emergency room. Follow up urine culture. Code(s): N39.0 - URINARY TRACT INFECTION, SITE NOT SPECIFIED Telemedicine Encounter - Telemedicine Encounter Telemedicine Encounter: The entirety of this encounter was performed via Telemedicine"
[2022-09-12] MEDS ORDERED: Hydromorphone 1 mg/ml Injection IV PRN ×3 (01:31→06:46)
[2022-09-12] MEDS ORDERED: Hydromorphone 1 mg/ml Injection ONE (02:37)
[2022-09-12] MEDS: Nicoderm CQ 21 MG TOP SCH ×2 (02:41→21:08)
[2022-09-12] MEDS ORDERED: Hydromorphone 1 mg/ml Injection IV ONE (03:31)
[2022-09-12 04:36] LABS: Absolute Neutrophil Ct (ANC) 9.18 x10^3/uL (1.4-6.9); BASOPHIL % 0.4 % (0.0-0.4); Basophil (Absolute #) 0.05 x10^3/uL (0-0.4); Eosinophil % 1.5 % (0.00-5.0); Hematocrit 42.1 % (42-50); Hemoglobin 13.4 g/dL (12.5-18.0); IMMATURE GRAN # 0.05 x10^3u/L (0.00-0.03); IMMATURE GRAN % 0.4 % (0.00-0.4); Lymphocyte (Absolute #) 2.76 x10^3/uL (1.0-4.6); Mean Cell Volume 87.2 fL (78-100); Mean Corpuscular Hemoglobin 27.7 pg (26-32); Mean Corpuscular Hgb Concent. 31.8 g/dL (32-36); Mean Platelet Volume 11.1 fL (7.5-11.0); Monocyte (Absolute #) 0.93 x10^3/uL (0.0-1.3); Monocytes % 7.1 % (0.0-12.0); Neutrophil % 69.6 % (36.0-66.0); Platelet Count 188 x10^3/uL (150-450); Red Blood Count 4.83 x10^6/uL (4.1-5.6); Red Cell Distribution Width 13.6 % (11.5-14.0); White Blood Count 13.2 x10^3/uL (4.0-10.5)
[2022-09-12 04:45] LABS: ALBUMIN 3.6 g/dL (3.5-5.0); ALKALINE PHOSPHATASE 127 U/L (38-126); ANION GAP 10.4 MEQ/L (5-15); BLOOD UREA NITROGEN 8 mg/dL (9-20); CHLORIDE 105 mmol/L (98-107); Calcium 8.3 mg/dL (8.4-10.2); Carbon Dioxide 26 mmol/L (22-30); Creatinine 1 0.61 mg/dL (0.66-1.25); EST GLOMERULAR FILTRATION RATE > 60.0 ML/MIN; Glucose 114 mg/dL (74-106); LIPASE 101 U/L (23-300); Potassium 3.8 mmol/L (3.5-5.1); SGOT/AST 16 U/L (17-59); SGPT/ALT 13 U/L (0-50); SODIUM 138 mmol/L (137-145)
[2022-09-12] MEDS: Sodium Chloride 0.9% 1000 ML 1,000 ML IV SCH ×3 (06:18→21:22)
[2022-09-12] MEDS ORDERED: HYDROMORPHONE 30 MG/30 ML-NS PCA IV PRN (08:37)
[2022-09-12] MEDS: Hydromorphone 1 mg/ml Injection IV ONE (09:04)
--- NOTE | 2022-09-12 09:33 | TM.IN ---
Tele-Medicine Incident Note - Incident Note Tel-Medicine Incident Note: 09/12/22 0931 Patient seen this morning by admitting physician overnight. Seen by me for follow-up. Pain has been uncontrolled overnight, despite increasing Dilaudid to 1 mg every 3 hours. Continues to be epigastric pain, similar to his prior epis odes of pancreatitis. No nausea associated with this. Patient lying in bed without any acute distress, somewhat more comfortable than reports from last night. Change patient to Dilaudid RESIDENTIAL TECH. Continue n.p.o. status. As he is able to start improving his pain, can start slowly advancing to clear liquid diet. Telemedicine Encounter - Telemedicine Encounter Telemedicine Encounter: The entirety of this encounter was performed via Telemedicine"
[2022-09-12] MEDS: Miralax Powder 17GM PACKET PO SCH (10:07)
[2022-09-12] MEDS: PROTONIX 40 MG IV IV SCH (10:18)
[2022-09-12] MEDS: ZOCOR 20MG PO SCH (18:05)
[2022-09-12] MEDS: Lexapro PO SCH (18:06)
[2022-09-12] MEDS ORDERED: ROCEPHIN 2 Gm-D5w 50ML BAG** 2 G/50 ML IVPB IV SCH (22:00)
[2022-09-13] MEDS: Sodium Chloride 0.9% 1000 ML 1,000 ML IV SCH ×3 (05:18→20:59)
[2022-09-13] MEDS ORDERED: NON-FORMULARY ITEM (Rosuvastatin Calcium [Crestor] 10 MG Tablet) PO SCH (10:00)
--- NOTE | 2022-09-13 10:45 | PCM.NOTE ---
Date and Time: 09/13/22 [facility] Subjective Assessment: No acute events overnight. Remains on RAKING MACHINE OPERATOR, with good pain control while on it, but still requiring frequent dosing. No nausea. He was advanced to clear liquid diet last night, and able to tolerate Jell-O this morning. Objective Exam Comments: GENERAL: Sitting up in bed in no acute distress NEURO: Alert, oriented x3, normal affect CV: Regular rate and rhythm, no murmurs, no edema PULM: Clear to auscultation bilaterally, no work of breathing ABD: Mildly tender over epigastrium OBJECTIVE DATA Vital Signs: Vital Signs - 24 hr Temp Pulse Resp BP Pulse Ox 09/13/22 08:13 95 09/13/22 08:00 16 09/13/22 06:41 98.0 F 84 16 137/76 95 09/13/22 06:32 16 95 09/13/22 04:00 97.8 F 77 16 146/73 95 09/13/22 00:00 17 95 09/12/22 23:52 18 09/12/22 20:00 16 96 09/12/22 19:29 96 09/12/22 18:50 98.6 F 85 16 144/69 95 09/12/22 16:42 18 95 09/12/22 16:00 98.0 F 95 H 18 120/56 95 09/12/22 12:42 95 09/12/22 12:19 95 09/12/22 12:00 16 09/12/22 11:34 98.0 F 81 16 111/53 94 L Pain Assessment - Last Documented Pain Intensity 5 Pain Scale Used 0-10 Pain Scale Intake and Output: Intake & Output 09/10/22 09/11/22 09/12/22 09/13/22 11:59 11:59 11:59 11:59 Intake Total 589 3610 Output Total 1835 Balance 589 1085 Weight 49 kg 49 kg Lab Results: Lab Results-Last 24 Hours 09/12/22 09/12/22 09/12/22 Range/Units 11:24 16:24 20:57 POC Glucometer 73 L 151 H 218 H (74 to 106) mg/dL 09/13/22 Range/Units 06:14 POC Glucometer 133 H (74 to 106) mg/dL Urine culture, skin brendon only Radiology Exams: Radiology Procedures Category Date Time Status ABDOMEN AND PELVIS W CONTRAST [CT] Stat Exams 09/11/22 20:38 Completed Multi-Disciplinary Progress Notes: Multi-Disciplinary Progress Notes 09/13/22 10:34 Case Management Note by Rajni Rosales/Kail PATIENT- HE CONTINUES TO DENY ANY NEW NEEDS AT TIME OF DC. HE PLANS TO DC HOME TO HIS PLF AT TIME OF DC Initialized on 09/13/22 10:34 - END OF NOTE Assessment/Plan (1) Acute on chronic pancreatitis Current Visit: Yes Status: Acute Assessment & Plan: 66-year-old man with history of chronic pancreatitis, peripheral chill disease, and recurrent kidney stones, here with acute on chronic pancreatitis. ## Acute on chronic pancreatitis fat stranding and inflammation around the pancreas on CT scan, and symptoms consistent with acute pancreatitis. Lipase is only mildly elevated, but in the setting of longstanding chronic pancreatitis, this can be low. Required RAKING MACHINE OPERATOR pump yesterday, but was able to be started on clear liquids yesterday and appears to be tolerating. Continue Dilaudid RAKING MACHINE OPERATOR Continue NS at 125 mL/h Continue clear liquid diet, and advance as tolerated Will decrease or stop IV fluids as p.o. intake increases Continue PRN Zofran ## Suspected cystitis patient does not have any dysuria, and urine culture was only growing skin brendon. Discontinue ceftriaxone ## Diabetes mellitus unclear type 2 diabetes or secondary to pancreatitis. Only on Amaryl at home. Blood sugars have been controlled here, although diet has been limited. Continue low-dose sliding scale insulin protocol ACHS ## Chronic stable problems PAD with history of carotid endarterectomy; continue Plavix Depression Continue Lexapro 10 mg daily Nicotine dependence Continue nicotine patch 21 mg Dyslipidemia continue Zocor 20 CODE STATUS: Full code Prophylaxis: MORA lara Code(s): K85.90 - ACUTE PANCREATITIS WITHOUT NECROSIS OR INFECTION, UNSP; K86.1 - OTHER CHRONIC PANCREATITIS Telemedicine Encounter - Telemedicine Encounter Telemedicine Encounter: The entirety of this encounter was performed via Telemedicine"
[2022-09-13] MEDS: PROTONIX 40 MG IV IV SCH (10:49)
[2022-09-13] MEDS: Miralax Powder 17GM PACKET PO SCH (10:50)
[2022-09-13] MEDS: Lexapro PO SCH (10:50)
[2022-09-13] MEDS: ZOCOR 20MG PO SCH (10:51)
[2022-09-13] MEDS: Nicoderm CQ 21 MG TOP SCH (20:58)
[2022-09-14 05:01] LABS: Hematocrit 39.3 % (42-50); Hemoglobin 12.9 g/dL (12.5-18.0); Mean Cell Volume 85.8 fL (78-100); Mean Corpuscular Hemoglobin 28.2 pg (26-32); Mean Corpuscular Hgb Concent. 32.8 g/dL (32-36); Mean Platelet Volume 10.6 fL (7.5-11.0); Platelet Count 197 x10^3/uL (150-450); Red Blood Count 4.58 x10^6/uL (4.1-5.6); Red Cell Distribution Width 13.6 % (11.5-14.0); White Blood Count 6.6 x10^3/uL (4.0-10.5)
[2022-09-14 05:10] LABS: ANION GAP 11.9 MEQ/L (5-15); BLOOD UREA NITROGEN 6 mg/dL (9-20); CHLORIDE 108 mmol/L (98-107); Calcium 8.3 mg/dL (8.4-10.2); Carbon Dioxide 23 mmol/L (22-30); Creatinine 1 0.58 mg/dL (0.66-1.25); EST GLOMERULAR FILTRATION RATE > 60.0 ML/MIN; Glucose 115 mg/dL (74-106); LIPASE 92 U/L (23-300); Potassium 3.3 mmol/L (3.5-5.1); SODIUM 140 mmol/L (137-145)
[2022-09-14] MEDS: Sodium Chloride 0.9% 1000 ML 1,000 ML IV SCH ×2 (05:19→13:22)
[2022-09-14] MEDS ORDERED: Klor Con PO ONE (07:28)
[2022-09-14] MEDS: Lexapro PO SCH (09:51)
[2022-09-14] MEDS: ZOCOR 20MG PO SCH (09:51)
[2022-09-14] MEDS: Miralax Powder 17GM PACKET PO SCH (09:55)
--- NOTE | 2022-09-14 10:32 | PCM.DS ---
Discharge Summary Date of Admission: 09/12/22 00:25 Date of Discharge: 09/14/2022 Admitting Physician: KOREY HERRING Primary Care Provider: JAMIE GUO Allergies Allergies codeine Adverse Reaction (Intermediate, Verified 09/12/22 00:44) Vomiting Hospital Summary - Hospital Course Hospital Course: 66-year-old man with history of chronic pancreatitis, peripheral arterial disease, and recurrent kidney stones, who presented on 09/12 with 3 days of abdominal pain and found to have acute on chronic pancreatitis. He was made n.p.o., put on IV fluids, and eventually Dilaudid SOLDERER FURNACE. Initially there is some suspicion of acute cystitis, but urine culture was negative and his antibiotics were stopped. He was slowly advanced on his diet until he was tolerating a soft diet prior to discharge with no nausea and control of his pain down to his baseline 4 out of 10. He will be discharged home to slowly advance his diet at home and follow-up with PCP in 1 week. Greater than 30 minutes spent arranging discharge. - Vitals & Intake/Output Vital Signs: Vital Signs Temperature 97.8 F 09/14/22 06:54 Pulse Rate 79 09/14/22 06:54 Respiratory Rate 18 09/14/22 07:57 Blood Pressure 154/74 09/14/22 06:54 O2 Sat by Pulse Oximetry 91 L 09/14/22 06:54 Intake & Output: Intake & Output 09/11/22 09/12/22 09/13/22 09/14/22 11:59 11:59 11:59 11:59 Intake Total 589 3610 3797 Output Total 3675 2900 Balance 589 1085 897 Weight 49 kg 49 kg 50 kg - Lab Result Diagrams: 09/14/22 04:22 09/14/22 04:22 Lab Results-Last 24 Hrs: Lab Results-Last 24 Hours 09/13/22 09/13/22 09/13/22 Range/Units 11:12 16:25 21:14 WBC (4.0-10.5) x10^3/uL RBC (4.1-5.6) x10^6/uL Hgb (12.5-18.0) g/dL Hct (42-50) % MCV (78-100) fL MCH (26-32) pg MCHC (32-36) g/dL RDW (11.5-14.0) % Plt Count (150-450) x10^3/uL MPV (7.5-11.0) fL Sodium (137-145) mmol/L Potassium (3.5-5.1) mmol/L Chloride (98-107) mmol/L Carbon Dioxide (22-30) mmol/L Anion Gap (5-15) MEQ/L BUN (9-20) mg/dL Creatinine (0.66-1.25) mg/dL Estimated GFR ML/MIN Glucose (74-106) mg/dL POC Glucometer 149 H 127 H 199 H (74 to 106) mg/dL Calcium (8.4-10.2) mg/dL Magnesium (1.6-2.3) mg/dL Lipase (23-300) U/L 09/14/22 09/14/22 09/14/22 Range/Units 04:22 04:22 06:52 WBC 6.6 (4.0-10.5) x10^3/uL RBC 4.58 (4.1-5.6) x10^6/uL Hgb 12.9 (12.5-18.0) g/dL Hct 39.3 L (42-50) % MCV 85.8 (78-100) fL MCH 28.2 (26-32) pg MCHC 32.8 (32-36) g/dL RDW 13.6 (11.5-14.0) % Plt Count 197 (150-450) x10^3/uL MPV 10.6 (7.5-11.0) fL Sodium 140 (137-145) mmol/L Potassium 3.3 L (3.5-5.1) mmol/L Chloride 108 H (98-107) mmol/L Carbon Dioxide 23 (22-30) mmol/L Anion Gap 11.9 (5-15) MEQ/L BUN 6 L (9-20) mg/dL Creatinine 0.58 L (0.66-1.25) mg/dL Estimated GFR > 60.0 ML/MIN Glucose 115 H (74-106) mg/dL POC Glucometer 116 H (74 to 106) mg/dL Calcium 8.3 L (8.4-10.2) mg/dL Magnesium (1.6-2.3) mg/dL Lipase 92 (23-300) U/L 09/14/22 Range/Units 07:32 WBC (4.0-10.5) x10^3/uL RBC (4.1-5.6) x10^6/uL Hgb (12.5-18.0) g/dL Hct (42-50) % MCV (78-100) fL MCH (26-32) pg MCHC (32-36) g/dL RDW (11.5-14.0) % Plt Count (150-450) x10^3/uL MPV (7.5-11.0) fL Sodium (137-145) mmol/L Potassium (3.5-5.1) mmol/L Chloride (98-107) mmol/L Carbon Dioxide (22-30) mmol/L Anion Gap (5-15) MEQ/L BUN (9-20) mg/dL Creatinine (0.66-1.25) mg/dL Estimated GFR ML/MIN Glucose (74-106) mg/dL POC Glucometer (74 to 106) mg/dL Calcium (8.4-10.2) mg/dL Magnesium 1.9 (1.6-2.3) mg/dL Lipase (23-300) U/L Micro Results-Entire Visit: Microbiology 09/11/22 20:10 Urine Culture - Final Urine, Void <10K NORMAL SKIN RAY PROBABLE SKIN CONTAMINANT Accuchecks Date 09/14/22 Date 09/13/22 Date 09/13/22 Date 09/13/22 Time 06:54 Time 21:15 Time 16:39 Time 12:22 - Radiology Exams Ordered Rad Exams-Entire Visit: CT abdomen/pelvis head and uncinate process of pancreas appear bulky with surrounding fat stranding in the mesentery, suggesting acute on chronic pancreatitis. Mild dilatation of the common bile duct and intrahepatic biliary radicles. Discharge Exam Comments: GENERAL: Sitting up in bed in no acute distress NEURO: Alert, oriented x3, normal affect CV: Regular rate and rhythm, no murmurs, no edema PULM: Clear to auscultation bilaterally, no work of breathing ABD: Mildly tender over epigastrium Final Diagnosis/Problem List - Final Discharge Diagnosis/Problem (1) Acute on chronic pancreatitis Current Visit: Yes Status: Acute Code(s): K85.90 - ACUTE PANCREATITIS WITHOUT NECROSIS OR INFECTION, UNSP; K86.1 - OTHER CHRONIC PANCREATITIS Telemedicine Encounter - Telemedicine Encounter Telemedicine Encounter: The entirety of this encounter was performed via Telemedicine" - Discharge Discharge Date: 09/14/22 Disposition: Home, Self-Care Condition: Stable Prescriptions: Continue Clopidogrel Bisulfate [PLAVIX Tablet] 75 mg PO UD Rosuvastatin Calcium [Crestor] 10 mg PO DAILY Escitalopram Oxalate [Lexapro] 10 mg PO DAILY Ibuprofen [Ibu] 600 mg PO TIDPRN Glimepiride 2 mg [Amaryl 2 MG] 2 mg PO DAILY Follow up with: JAMIE UGO MD [Primary Care Provider] - 1 Week
[2022-09-14 12:18] VITALS: BP 165/81; PULSE 82
[2022-09-15] MEDS ORDERED: PLAVIX Tablet PO SCH (10:00)
[2022-09-15 19:25] VITALS: O2SAT 99
== END 2022-09-14 14:52 | disposition home or self-care (01) ==
LOC: ED 19:44 → MED SURG 09-12 00:25
PROVIDERS: ATTEND Family Medicine
DX: K85.90 Acute pancreatitis without necrosis or infection, unspecified (principal); K86.1 Other chronic pancreatitis; I25.10 Atherosclerotic heart disease of native coronary artery without angina pectoris; E78.5 Hyperlipidemia, unspecified; E11.9 Type 2 diabetes mellitus without complications; N39.0 Urinary tract infection, site not specified; F32.A Depression, unspecified; Z79.899 Other long term (current) drug therapy; Z79.01 Long term (current) use of anticoagulants; Z72.0 Tobacco use; Z87.442 Personal history of urinary calculi; Z86.73 Personal history of transient ischemic attack (TIA), and cerebral infarction without residual deficits
CPT/HCPCS: 36000; 36415; 74177; 80048; 80053; 81001; 82947; 83690; 83735; 85025; 85027; 87086; 94762; 96360; 96365; 96374; 96375; 99285; Q3014; 93268; J0696; J1170; J1642; J1817; J2270; J2405; A9270-GY; G0378